=== PATIENT | male | born 1970 ===

== ENCOUNTER 2020-01-04 11:22 | Day surgery (SDC) | payer OTHER, SELFPAY ==
[2019-12-28 16:35] VITALS: BMI 34.2
--- NOTE | 2020-01-01 12:18 | P.CONAN_ITS ---
Documented by User: Any Self 01/01/20 12:20 HPI - Anesthesia Eval Consult details Narrative: 49yo M for Colonoscopy [facility] Past Medical History Medical History Back pain Degenerative disc disease Elevated cholesterol HTN (hypertension) Social History Social History Smoking Status: Never smoker Use of substances other than those prescribed or required for medical reasons: No Advance Directives: Yes Advance Directives on File: Yes Advance Directives Date on File: 01/04/20 Recently lost weight without trying: No Meds Allergies Allergy/AdvReac Type Severity Reaction Status Date / Time pravastatin Allergy Mild Fatigued Verified 01/04/20 12:41 simvastatin Allergy Mild Fatigued Verified 01/04/20 12:41 Fenofibrate Allergy Unknown Unknown Uncoded 12/28/19 16:29 Home Medications Medication Instructions Recorded Confirmed Type acetaminophen [Tylenol Ex Str 500 mg PO Q6H PRN 12/28/19 12/28/19 History Rapid Release] buprenorphine-naloxone film SUBLINGUAL 12/28/19 History lisinopril 1 tab PO DAILY 12/28/19 12/28/19 History omega-3 fatty acids [Fish Oil] 500 mg PO DAILY 12/28/19 12/28/19 History Exam Exam Date and Time: January 01, 2020 1218 Height,Weight and Vital Signs: Height 5 ft 9 in Weight 105.233 kg Assessment and Plan Assessment Anesthesia Assessment: Chart Reviewed Documented by User: Namita Edwards 01/04/20 12:44 [facility] Past Medical History Medical History Back pain Degenerative disc disease Elevated cholesterol HTN (hypertension) Social History Social History Smoking Status: Never smoker Use of substances other than those prescribed or required for medical reasons: No Advance Directives: Yes Advance Directives on File: Yes Advance Directives Date on File: 01/04/20 Recently lost weight without trying: No Meds Allergies Allergy/AdvReac Type Severity Reaction Status Date / Time pravastatin Allergy Mild Fatigued Verified 01/04/20 12:41 simvastatin Allergy Mild Fatigued Verified 01/04/20 12:41 Fenofibrate Allergy Unknown Unknown Uncoded 12/28/19 16:29 Home Medications Medication Instructions Recorded Confirmed Type acetaminophen [Tylenol Ex Str 500 mg PO Q6H PRN 12/28/19 12/28/19 History Rapid Release] buprenorphine-naloxone film SUBLINGUAL 12/28/19 History lisinopril 1 tab PO DAILY 12/28/19 12/28/19 History omega-3 fatty acids [Fish Oil] 500 mg PO DAILY 12/28/19 12/28/19 History Exam Airway Mallampati Class: II TM Dist: >3cm Neck ROM: Full (Thick neck) Heart: RRR Lungs: CTA Assessment and Plan Assessment Anesthesia Assessment: Anesthesia Plan Discussed and Consent Obtained Final Anesthetic Review NPO: Yes ASA Class: III Final Preanesthetic Review: No Changes in Pt Med Stat, Meds & Allergies Reviewed, Consent Obtained/Reviewed and Med/Surg/Anes Hx Reviewed Patient Risk: Intermediate Procedure Risk: Low Anesthetic Plan Anesthetic Plan: MAC: Disposition: Standard PACU
[2020-01-04 12:25] VITALS: BP 146/95; PULSE 74; RESP 20; TEMP 36.5; O2SAT 96
[2020-01-04 12:29] VITALS: BP 146/95; PULSE 74; RESP 20; TEMP 36.5; O2SAT 96
[2020-01-04] MEDS: Lactated Ringers 1,000 ML 100 ML IVCONT (12:39)
[2020-01-04 13:45] VITALS: BP 123/76; PULSE 86; RESP 16; TEMP 36.7; O2SAT 98
[2020-01-04 13:56] VITALS: O2SAT 98
[2020-01-04 14:00] VITALS: BP 130/85; PULSE 83; RESP 18; O2SAT 97
--- NOTE | 2020-01-04 14:19 | HO.POSTANES ---
Post Anesthesia Evaluation Post Anesthesia Evaluation Vital Signs: Vital Signs Temp Pulse Resp BP Pulse Ox 01/04/20 14:00 83 18 130/85 97 01/04/20 13:56 98 01/04/20 13:45 98.1 F 86 16 123/76 98 01/04/20 12:29 97.7 F 74 20 146/95 H 96 01/04/20 12:25 97.7 F 74 20 146/95 H 96 Anesthesia: Monitored Mental Status: Awake Pain Control: Satisfactory Nausea/Vomiting: None Hydration: Adequate Anesthesia-Related Issues: No Anes. Related Issues
--- NOTE | 2020-01-04 14:25 | OP_ITS ---
SURGEON: Bg Cedeno MD INDICATIONS: The patient presents for evaluation of colorectal cancer screening. Full consent has been obtained from him for this, including risks of bleeding and perforation. PREOPERATIVE DIAGNOSIS: Colorectal cancer screening. POSTOPERATIVE DIAGNOSIS: PROCEDURE PERFORMED: Colonoscopy to cecum and terminal ileum. ESTIMATED BLOOD LOSS: COMPLICATIONS: ANESTHESIA: Monitored anesthesia care. ASSISTANTS: SPECIMENS: POSTOPERATIVE DIAGNOSES: Colorectal cancer screening, diverticulosis and internal hemorrhoids. DESCRIPTION OF PROCEDURE: The patient was placed in the left lateral decubitus position. The digital rectal exam revealed no abnormalities. The Olympus video pediatric colonoscope was entered into the rectum and advanced easily to the cecum. Once in the cecum, I did identify normal-appearing cecal pouch with appendiceal orifice and a normal-appearing ileocecal valve. The terminal ileum was cannulated and appeared normal. The scope was withdrawn back in the colon. The entire cecum and ileocecal valve appeared normal. The scope was slowly withdrawn assessing all mucosal surfaces carefully. Preparation was excellent. I did not visualize any sign of polyps, colitis, nor angiodysplasia. There was a mild amount of sigmoid diverticulosis. In the rectum, scope was retroflexed visualizing small internal hemorrhoids, but no other pathology. The rectal mucosa appeared normal. The scope was straightened out and withdrawn from the patient. He tolerated the procedure well and was returned to the recovery area in stable condition. IMPRESSION: 1. Diverticulosis. 2. Internal hemorrhoids. PLAN: Given the patient's negative exam and negative family history of colon cancer, I would recommend a followup colonoscopy in 10 years for further screening. He will otherwise see me on a p.r.n. basis. MD URIAH Denton/DIMPLE / [phone]
== END 2020-01-04 14:21 | disposition home or self-care (01) ==
PROVIDERS: PCP Internal Medicine; Visit Provider Internal Medicine
PROC: 0DJD8ZZ Inspection of Lower Intestinal Tract, Via Natural or Artificial Opening Endoscopic (ICD-10-PCS; CPT 45378; principal; 2020-01-04 12:50)
DX: Z12.11 Encounter for screening for malignant neoplasm of colon (principal); K57.30 Diverticulosis of large intestine without perforation or abscess without bleeding; K64.8 Other hemorrhoids; I10 Essential (primary) hypertension; E78.00 Pure hypercholesterolemia, unspecified; Z79.899 Other long term (current) drug therapy; Z88.8 Allergy status to other drugs, medicaments and biological substances
CPT/HCPCS: 45378

== ENCOUNTER 2021-11-10 10:43 | Outpatient (REF) | payer OTHER, SELFPAY ==
[2021-11-10 13:52] LABS: MANUAL DIFF FLAG NO
[2021-11-10 14:08] LABS: Basophils Percent Auto 0.5 % (0-2); Eosinophils Absolute Auto 0.1 X10*3/uL (0.0-0.4); Eosinophils Percent Auto 1.5 % (0-4); Imm Gran Abs Auto 0.01 X10*3/uL (0.00-0.03); Imm Gran Pct Auto 0.2 % (0.0-0.4); Lymphocytes Absolute Auto 2.2 X10*3/uL (1.2-4.9); Lymphocytes Percent Auto 54.1 % (20-40); Mean Corpuscular HGB Conc 34.1 g/dl (31.0-36.0); Mean Corpuscular Hemoglobin 29.5 pg (27.0-33.0); Mean Corpuscular Volume 86.5 fL (80.0-98.0); Mean Platelet Volume 11.2 fL (9.4-12.4); Monocytes Absolute Auto 0.4 X10*3/uL (0.1-1.2); Monocytes Percent Auto 8.7 % (2-11); Neutrophils Absolute Auto 1.4 x10*3/uL (2.0-8.3); Platelet Count 226 X10*3/uL (160-400); Red Blood Count 4.74 X10*6/uL (4.60-5.80); Red Cell Distribution Width 12.1 % (11.0-16.0)
[2021-11-10 14:15] LABS: Estimated Average Glucose 111 mg/dL; Hemoglobin A1c % 5.5 %
[2021-11-10 14:31] LABS: Alanine Aminotransferase 40 U/L (0-40); Albumin Level 4.1 g/dL (3.5-5.0); Alkaline Phosphatase 51 U/L (39-117); Anion Gap 13 (12-20); Aspartate Amino Transferase 31 U/L (5-37); Bilirubin Total 0.5 mg/dL (0.0-1.0); Blood Urea Nitrogen 17 mg/dL (9-16); Calcium 9.2 mg/dL (8.4-10.2); Carbon Dioxide 29 mmol/L (22-29); Chloride 101 mmol/L (96-108); Cholesterol 243 mg/dL; Estimated Glomerular Filt Rate > 60; Glucose Random 104 mg/dL (60-115); HDL Cholesterol 39 mg/dL; LDL Cholesterol Calculated 151 mg/dl; Potassium 4.1 mmol/L (3.3-5.1); Sodium 139 mmol/L (135-145); Total Protein 7.2 g/dL (6.5-8.0); Triglycerides 268 mg/dL
[2021-11-10 14:47] LABS: Free T4 (Free Thyroxine) 0.89 ng/dL (0.71-1.85); Thyroid Stimulating Hormone 1.28 uIU/mL (0.32-4.0)
[2021-11-10 14:54] LABS: Folate 3.6 ng/mL (> or = 4.0); Vitamin B12 367 pg/mL (200-900)
== END 2021-11-10 10:44 | disposition home or self-care (01) ==
LOC: HO.10HDL 10:43
PROVIDERS: Visit Provider Internal Medicine
DX: I10 Essential (primary) hypertension (principal); R73.02 Impaired glucose tolerance (oral); E78.00 Pure hypercholesterolemia, unspecified; Z12.5 Encounter for screening for malignant neoplasm of prostate
CPT/HCPCS: 36415; 80053; 80061; 82607; 82746; 83036; 84153; 84439; 84443; 85025

== ENCOUNTER 2022-10-22 09:55 | Outpatient (REF) | payer OTHER, SELFPAY ==
[2022-10-22 10:26] LABS: MANUAL DIFF FLAG NO
[2022-10-22 10:30] LABS: Basophils Percent Auto 0.5 % (0-2); Eosinophils Absolute Auto 0.1 X10*3/uL (0.0-0.4); Eosinophils Percent Auto 1.6 % (0-4); Hemoglobin 13.7 g/dl (14.0-18.0); Imm Gran Abs Auto 0.01 X10*3/uL (0.00-0.03); Imm Gran Pct Auto 0.2 % (0.0-0.4); Lymphocytes Absolute Auto 2.4 X10*3/uL (1.2-4.9); Mean Corpuscular HGB Conc 34.3 g/dl (31.0-36.0); Mean Corpuscular Volume 87.7 fL (80.0-98.0); Mean Platelet Volume 10.3 fL (9.4-12.4); Monocytes Absolute Auto 0.4 X10*3/uL (0.1-1.2); Monocytes Percent Auto 8.2 % (2-11); Neutrophils Absolute Auto 1.6 x10*3/uL (2.0-8.3); Neutrophils Percent Auto 35.5 % (45-73); Platelet Count 206 X10*3/uL (160-400); Red Blood Count 4.56 X10*6/uL (4.60-5.80); White Blood Count 4.4 X10*3/uL (4.8-10.8)
[2022-10-22 10:41] LABS: Estimated Average Glucose 105 mg/dL; Hemoglobin A1c % 5.3 %
[2022-10-22 10:50] LABS: Alanine Aminotransferase 50 U/L (0-40); Alkaline Phosphatase 52 U/L (39-117); Anion Gap 10 (12-20); Aspartate Amino Transferase 31 U/L (5-37); Bilirubin Total 0.5 mg/dL (0.0-1.0); Blood Urea Nitrogen 17 mg/dL (9-16); Calcium 9.5 mg/dL (8.4-10.2); Carbon Dioxide 32 mmol/L (22-29); Chloride 103 mmol/L (96-108); Cholesterol 238 mg/dL; Estimated Glomerular Filt Rate > 60; Glucose Random 119 mg/dL (60-115); HDL Cholesterol 35 mg/dL; LDL Cholesterol Calculated 153 mg/dl; Potassium 4.3 mmol/L (3.3-5.1); Sodium 141 mmol/L (135-145); Total Protein 7.1 g/dL (6.5-8.0); Triglycerides 254 mg/dL
[2022-10-22 11:05] LABS: Free T4 (Free Thyroxine) 0.91 ng/dL (0.71-1.85); Thyroid Stimulating Hormone 1.34 uIU/mL (0.32-4.0)
[2022-10-22 11:29] LABS: Folate 9.8 ng/mL (> or = 4.0); Prostate Specific Antigen Scr 0.38 ng/mL (<0.05-4.0); Vitamin B12 576 pg/mL (200-900)
== END 2022-10-22 09:56 | disposition home or self-care (01) ==
LOC: HO.10HDL 09:55
PROVIDERS: Visit Provider Internal Medicine
DX: Z12.5 Encounter for screening for malignant neoplasm of prostate (principal); R73.02 Impaired glucose tolerance (oral); E78.00 Pure hypercholesterolemia, unspecified
CPT/HCPCS: 36415; 80053; 80061; 82607; 82746; 83036; 84153; 84439; 84443; 85025

== ENCOUNTER 2023-02-26 15:36 | Outpatient (AMB) | payer OTHER, SELFPAY ==
[2023-02-26 15:37] VITALS: BP 158/82; PULSE 72; O2SAT 98; BMI 37.0
--- NOTE | 2023-02-26 15:37 | MHC.PC.OV ---
Vital Signs 02/26/23 15:37 Height 5 ft 9 in Weight 250 lb 4 oz BMI 37.0 BP 158/82 H Blood Pressure Location Lt brachial Position Sitting Pulse 72 Pulse Source Pulse Oximeter Pulse Oximetry (%) 98 Oxygen Delivery Method Room Air Intake Visit Reasons: 6 month f/u Emergency Medical Service Manager Required: No Accompanied by: Self / Same As Patient Allergies pravastatin Allergy (Mild, Verified 02/26/23 15:37) Fatigued simvastatin Allergy (Mild, Verified 02/26/23 15:37) Fatigued fenofibrate Allergy (Unknown, Verified 02/26/23 15:37) Unknown Medication List - Last Reconciled 02/26/23 by Elmer Chacko MD acetaminophen 500 mg PO Q6H PRN buprenorphine-naloxone 2-0.5 mg film sublingual DAILY folic acid 1 mg PO DAILY 30 days lisinopril 10 mg PO DAILY 30 days omega-3 fatty acids 500 mg PO DAILY Tobacco use date assessed: 08/20/22 Dental Screening Dental Screen Date: 02/26/23 Did you have a dental visit in the last 12 months?: Yes Did you have a dental problem in the last 6 months where you did not have access to dental care?: No Was dental information given to patient?: Patient has dentist HPI 6 month f/u HPI Details 52-year-old obese male with hypertension hypercholesterolemia generalized anxiety disorder BPH impaired glucose tolerance coming in for follow-up. Last seen in July for physical exam. Patient is up-to-date with colonoscopy December 2019. Discussed about the blood work that was done in September. 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 Patient was to get the blood work repeated again in 6 months. [facility] Medical History Degenerative disc disease Essential hypertension Generalized anxiety disorder Hypercholesterolemia Insomnia Leukopenia Obesity (BMI 30-39.9) Vitamin D deficiency Surgical History No pertinent past surgical history Family History Father Skin cancer Mother No problems noted. Social History Housing: House Alcohol intake: current Patient Tobacco Use Status: Former Tobacco user Tobacco use type: Cigarette Years Smoked: smoked 28 years old had 10 year of smoking e-Cigarette/Vaping Use: Never Used Second Hand Smoke Exposure: Yes Advance Directives Date on File: 01/04/20 Current occupational status: employed Cognitive needs: No Hearing needs: No Vision needs: No Questionnaire Thrive Questionnaire Date Thrive assessed: 08/20/22 KATHIA-7 AMB Questionnaire KATHIA-7 Date KATHIA - 7 assessed: 08/20/22 Source: Developed by Drs. Bg Cunha, Barb Guardado, Dante Larsen and colleagues, with an educational sabas from [employer]. Physical exam (Primary Care) Vital Signs: Last Vital Signs Pulse 72 02/26/23 15:37 BP 158/82 H 02/26/23 15:37 Pulse Ox 98 02/26/23 15:37 Oxygen Delivery Method Room Air 02/26/23 15:37 BMI result Body Mass Index 37.0 Tobacco/Smoking Status: Tobacco use Status Tobacco use date assessed 08/20/22 02/26/23 15:38 Patient Tobacco Use Status Former Tobacco user 02/26/23 15:38 Tobacco use type Cigarette 02/26/23 15:38 e-Cigarette/Vaping Use Never Used 02/26/23 15:38 Thrive Assessment: Date of Thrive Assessment Date Thrive assessed 08/20/22 02/26/23 15:38 Const General: alert; No acute distress Eyes Conjunctivae: conjunctivae normal Resp Auscultation: clear to auscultation bilaterally Cardio Rate: regular rate Rhythm: regular rhythm GI Inspection: Yes normal to inspection Extrem General: Yes normal to inspection and No edema Assessment and Plan Assessment & Plan (1) Obesity (BMI 30-39.9): Code(s): E66.9 - Obesity, unspecified Plan: Diet and exercise (2) Hypercholesterolemia: Code(s): E78.00 - Pure hypercholesterolemia, unspecified Plan: Avoid fried foods, chicken skin, eggs, butter margarine, pastries and meat. Be it pork or beef they have a lot of cholesterol LDL goal of less than 130 and triglyceride of less than 150 (3) Essential hypertension: Code(s): I10 - Essential (primary) hypertension Plan: Continue with blood pressure medication. Decrease salt intake and exercise patient on lisinopril 10 mg once a day (4) Impaired glucose tolerance: Code(s): R73.02 - Impaired glucose tolerance (oral) Plan: Decrease the amount of carbohydrate intake, pasta, bread, rice and potatoes are all sugar and that is aside from all the sweet stuff, remember that fruits are good but they are Sweet also. (5) Generalized anxiety disorder: Code(s): F41.1 - Generalized anxiety disorder Plan: Avoid the foods that causes that usually spicy foods, tomato products, juices, coffee, soda and foods that your sensitive to. After eating do not lie down, allow 3-4 hours before in lie down. And keep the head of bed above 30 degrees to avoid the acid from going up. (6) BPH (benign prostatic hyperplasia): Comment: Microwave Dr. Aguilar Code(s): N40.0 - Benign prostatic hyperplasia without lower urinary tract symptoms Plan: Continue to monitor (7) Anemia: Code(s): D64.9 - Anemia, unspecified Orders: Orders Complete Blood Count Auto Diff 6 Months D64.9 - Anemia, unspecified Hemoglobin A1c 6 Months R73.02 - Impaired glucose tolerance (oral) Comprehensive Met. Panel 6 Months R73.02 - Impaired glucose tolerance (oral) Prostate Specific Antigen Scr 6 Months E78.00 - Pure hypercholesterolemia, unspecified IRON PROFILE 6 Months D64.9 - Anemia, unspecified Reticulocyte Count 6 Months D64.9 - Anemia, unspecified Vitamin B12 and Folate 6 Months D64.9 - Anemia, unspecified Ferritin 6 Months D64.9 - Anemia, unspecified Lipid Panel 6 Months E78.00 - Pure hypercholesterolemia, unspecified Coding Level of Care Code Est Pt Level 4 (51321) Diagnoses Obesity (BMI 30-39.9) E66.9 Hypercholesterolemia E78.00 Essential hypertension I10 Impaired glucose tolerance R73.02 Generalized anxiety disorder F41.1 BPH (benign prostatic hyperplasia) N40.0 Anemia D64.9
== END 2023-02-26 16:24 | disposition home or self-care (01) ==
PROVIDERS: Visit Provider Internal Medicine
DX: I10 Essential (primary) hypertension (principal); E78.00 Pure hypercholesterolemia, unspecified; E66.9 Obesity, unspecified; Z68.37 Body mass index [BMI] 37.0-37.9, adult; R73.02 Impaired glucose tolerance (oral); F41.1 Generalized anxiety disorder; N40.0 Benign prostatic hyperplasia without lower urinary tract symptoms; D64.9 Anemia, unspecified
CPT/HCPCS: 99214

== ENCOUNTER 2023-08-15 07:46 | Outpatient (REF) | payer OTHER, SELFPAY ==
[2023-08-15 10:52] LABS: MANUAL DIFF FLAG NO
[2023-08-15 11:15] LABS: Basophils Percent Auto 0.9 % (0-2); Eosinophils Absolute Auto 0.1 X10*3/uL (0.0-0.4); Eosinophils Percent Auto 1.8 % (0-4); Hematocrit 39.7 % (42.0-52.0); Hemoglobin 13.5 g/dl (14.0-18.0); Immature Retic Fraction 12.9 % (2.3-13.4); Lymphocytes Percent Auto 57.5 % (20-40); Mean Corpuscular Hemoglobin 30.2 pg (27.0-33.0); Mean Corpuscular Volume 88.8 fL (80.0-98.0); Mean Platelet Volume 11.4 fL (9.4-12.4); Monocytes Absolute Auto 0.3 X10*3/uL (0.1-1.2); Neutrophils Percent Auto 29.8 % (45-73); Platelet Count 152 X10*3/uL (160-400); Red Blood Count 4.47 X10*6/uL (4.60-5.80); Retic HGB Equivalent 34.7 pg (30.0-35.0); Reticulocyte Percent 1.8 % (0.5-1.8); Reticulocytes Absolute 0.081 X10*6/uL (0.026-0.095); White Blood Count 3.4 X10*3/uL (4.8-10.8)
[2023-08-15 11:39] LABS: Prostate Specific Antigen Scr 0.81 ng/mL (<0.05-4.0); Vitamin B12 488 pg/mL (200-900)
[2023-08-15 11:40] LABS: Alanine Aminotransferase 29 U/L (0-40); Alkaline Phosphatase 63 U/L (39-117); Anion Gap 12 (12-20); Aspartate Amino Transferase 33 U/L (5-37); Bilirubin Total 0.4 mg/dL (0.0-1.0); Blood Urea Nitrogen 14 mg/dL (9-16); Calcium 9.3 mg/dL (8.4-10.2); Carbon Dioxide 31 mmol/L (22-29); Chloride 102 mmol/L (96-108); Cholesterol 234 mg/dL (<200); Estimated Glomerular Filt Rate > 60; Glucose Random 112 mg/dL (60-115); HDL Cholesterol 31 mg/dL (>40); Iron 82 mcg/dL (45-160); Percent Iron Saturation 33 % (15-50); Potassium 4.1 mmol/L (3.3-5.1); Sodium 141 mmol/L (135-145); Total Iron Binding Capacity 247 mcg/dL (228-428); Triglycerides 486 mg/dL (<150); Unsaturated Iron Binding 165 ug/dL
[2023-08-15 11:41] LABS: Ferritin 140 ng/mL (20-250)
[2023-08-15 11:47] LABS: Estimated Average Glucose 114 mg/dL; Hemoglobin A1c % 5.6 % (<6.0)
[2023-08-15 12:31] LABS: Folate > 20.0 ng/mL (> or = 4.0)
== END 2023-08-15 07:47 | disposition home or self-care (01) ==
LOC: HO.10HDL 07:46
PROVIDERS: Visit Provider Internal Medicine
DX: D64.9 Anemia, unspecified (principal); Z12.5 Encounter for screening for malignant neoplasm of prostate; R73.02 Impaired glucose tolerance (oral); E78.00 Pure hypercholesterolemia, unspecified
CPT/HCPCS: 36415; 80053; 80061; 82607; 82728; 82746; 83036; 83540; 84153; 85025; 85045

== ENCOUNTER 2023-08-22 15:26 | Outpatient (AMB) | payer OTHER, SELFPAY ==
--- NOTE | 2023-08-22 15:28 | MHC.PC.OV ---
Vital Signs 08/22/23 15:29 Height 5 ft 9 in Weight 247 lb 0.6 oz BMI 36.5 BP 138/74 Blood Pressure Location Lt brachial Position Sitting Pulse 69 Pulse Source Pulse Oximeter Pulse Oximetry (%) 96 Oxygen Delivery Method Room Air Intake Visit Reasons: pe Intake Note: Patient is here today for a physical. Sales Enablement Consultant Required: No Allergies simvastatin Allergy (Mild, Verified 08/22/23 15:38) Fatigued fenofibrate Allergy (Unknown, Verified 08/22/23 15:38) Unknown Medication List - Last Reconciled 08/22/23 by Elmer Chacko MD acetaminophen 500 mg PO Q6H PRN buprenorphine-naloxone 2-0.5 mg [place] folic acid 1 mg PO DAILY 30 days lisinopril 10 mg PO DAILY Tobacco use date assessed: 08/22/23 Dental Screening Dental Screen Date: 08/22/23 Did you have a dental visit in the last 12 months?: Yes Did you have a dental problem in the last 6 months where you did not have access to dental care?: No Was dental information given to patient?: Patient has dentist HPI pe HPI Details 52-year-old obese male with hypertension hypercholesterolemia impaired glucose tolerance BPH and generalized anxiety disorder coming in for physical exam. Last colonoscopy is December 2019. [facility] Medical History Degenerative disc disease Essential hypertension Generalized anxiety disorder Hypercholesterolemia Insomnia Leukopenia Obesity (BMI 30-39.9) Vitamin D deficiency Surgical History No pertinent past surgical history Family History Father Skin cancer Mother No problems noted. Social History (Updated 08/22/23 @ 16:23 by Elmer Chacko MD) Housing: House Alcohol intake: current Comment: stopped 3 years ago Patient Tobacco Use Status: Former Tobacco user Tobacco use type: Cigarette Years Smoked: smoked 28 years old had 10 year of smoking e-Cigarette/Vaping Use: Never Used Second Hand Smoke Exposure: Yes Advance Directives Date on File: 01/04/20 Current occupational status: employed Cognitive needs: No Hearing needs: No Vision needs: No Questionnaire PHQ-9 Over the last 2 weeks, how often have you been bothered by any of the following problems? 1. Little interest or pleasure in doing things: not at all 2. Feeling down, depressed, or hopeless: not at all 3. Trouble falling or staying asleep, or sleeping too much: not at all 4. Feeling tired or having little energy: not at all 5. Poor appetite or overeating: not at all 6. Feeling bad about yourself - or that you are a failure or have let yourself or your family down: not at all 7. Trouble concentrating on things, such as reading the newspaper or watching television: not at all 8. Moving or speaking so slowly that other people could have noticed. Or the opposite - being so fidgety or restless that you have been moving around a lot more than usual: not at all 9. Thoughts that you would be better off or of hurting yourself in some way: not at all Total score: 0 Depression Screening Interpretation: Negative Depression Screening Done: Yes Source: Developed by Drs. Bg Cunha, Barb Guardado, Dante Larsen and colleagues, with an educational sabas from [employer]. Thrive Questionnaire Date Thrive assessed: 08/22/23 I am a: Patient What is your living situation today?: I have a steady place to live Within the past 12 months, did the food you bought not last and you didn't have the money to get more?: Never true Within the past 12 months, did you worry whether your food would run out before you got money to buy more?: Never true Do you have trouble paying for medicines?: No Do you have trouble getting transportation to medical appointments?: No Do you have trouble paying your heating and electricity bill?: No Do you have trouble taking care of your child, family member or friend?: No Do you have trouble with day-to-day activities such as bathing, preparing meals, shopping, managing finances, etc.?: No Are you currently unemployed and looking for a job?: No Are you interested in more education?: No Please select the resources that you would like help with: None Currently or been in a relationship where the following occur: no concerns reported THRIVE Score: 0 AUDIT C Alcohol Use Questionnaire (AUDIT-C) 1. How often do you have a drink containing alcohol?: 2-4 times a month 2. How many drinks containing alcohol do you have on a typical day when you are drinking?: 3 or 4 3. How often do you have six or more drinks on one occasion?: Never Total Score: 3 KATHIA-7 AMB Questionnaire KATHIA-7 Date KATHIA - 7 assessed: 08/22/23 Feeling nervous, anxious, or on edge: 0 = Not at all Not being able to stop or control worryin = Not at all Worrying too much about different things: 0 = Not at all Trouble relaxin = Not at all Being so restless that it is hard to sit still: 0 = Not at all Becoming easily annoyed or irritable: 0 = Not at all Feeling afraid as if something awful might happen: 0 = Not at all Total KATHIA-7 score (0-4 normal; 5-9 mild; 10-14 moderate; 15-21 severe): 0 Source: Developed by Drs. Bg Cunha, Barb Guardado, Dante Larsen and colleagues, with an educational sabas from [employer]. KATHIA-7 Assessment Billing KATHIA-7 Assessment Tool: KATHIA-7 Assessment 36215 Review of Systems Const Denies poor appetite and Denies weakness Eyes Denies no additional complaints ENT Reports Normal hearing present, Denies dizziness, Denies nasal congestion, Denies tinnitus and Denies sore throat Card Denies chest pain, Denies syncope, Denies rapid heart rate and Denies dyspnea Resp Denies cough and Denies dyspnea GI Denies change in stool character, Reports constipation, Denies diarrhea, Denies nausea and Denies vomiting Denies dysuria and Denies urinary frequency Neuro Reports Normal hearing present, Denies confusion, Denies dizziness, Denies syncope and Denies weakness Psych Denies confusion Physical exam (Primary Care) Vital Signs: Last Vital Signs Pulse 69 08/22/23 15:29 BP 138/74 08/22/23 15:29 Pulse Ox 96 08/22/23 15:29 Oxygen Delivery Method Room Air 08/22/23 15:29 BMI result Body Mass Index 36.5 Tobacco/Smoking Status: Tobacco use Status Tobacco use date assessed 08/22/23 08/22/23 15:30 Patient Tobacco Use Status Former Tobacco user 08/22/23 15:30 Tobacco use type Cigarette 08/22/23 15:30 e-Cigarette/Vaping Use Never Used 08/22/23 15:30 PHQ-9: PHQ-9 Score PHQ-9: Total score 0 08/22/23 15:30 Depression Screening Interpretation: Negative Thrive Assessment: Date of Thrive Assessment Date Thrive assessed 08/22/23 08/22/23 15:30 Currently or been in a relationship where the following occur: no concerns reported Const General: No confusion Orientation/consciousness: No confusion HENMT Head: Yes normocephalic Ears: external ears normal and TM's normal bilaterally Face and sinus: Yes normal facial exam Mouth: moist mucous membranes Throat: Yes tonsils normal Eyes Conjunctivae: conjunctivae normal Pupils: Equal, round and reactive pupils present and Pupil accommodation reflex normal Direct Ophthalmoscopy: normal light reflex Neck Neck: No lymphadenopathy Thyroid: Thyroid normal Chest Chest palpation & inspection: normal inspection of the chest Resp Effort & Inspection: normal respiratory effort and no audible wheezes Auscultation: clear to auscultation bilaterally, no crackles, no wheezes and lung sounds not diminished Cardio Rate: regular rate Rhythm: regular rhythm Peripheral pulses: radial pulses present and dorsalis pedis present GI Other: Declined rectal Palpation (GI): no masses Auscultation: normal bowel sounds and normoactive bowel sounds Rectal Exam - Male: Yes deferred Other: Declined Skin General skin exam: no rashes or lesions noted Rashes: no rashes Neuro General: No confusion Cranial nerves: Yes Equal, round and reactive pupils present and Yes Normal hearing present Cognition (Neuro): normal cognition Gait exam (Neuro): Normal gait present Motor exam (neuro): 5/5 motor strength present throughout Deep tendon reflexes (DTR's): Right brachioradialis reflex intensity grade: 2+, Left brachioradialis reflex intensity grade: 2+, Right patellar reflex intensity grade: 2+ and Left patellar reflex intensity grade: 2+ Extrem General: No edema Assessment and Plan Assessment & Plan (1) Annual physical exam: Code(s): Z00.00 - Encounter for general adult medical examination without abnormal findings (2) Obesity (BMI 30-39.9): Code(s): E66.9 - Obesity, unspecified Plan: Diet and exercise (3) Hypercholesterolemia: Code(s): E78.00 - Pure hypercholesterolemia, unspecified Plan: Avoid fried foods, chicken skin, eggs, butter margarine, pastries and meat. Be it pork or beef they have a lot of cholesterol LDL goal of less than 130 and triglyceride of less than 150 (4) Essential hypertension: Code(s): I10 - Essential (primary) hypertension Plan: Continue with blood pressure medication. Decrease salt intake and exercise takes lisinopril 10 mg once a (5) Generalized anxiety disorder: Code(s): F41.1 - Generalized anxiety disorder Plan: Stable (6) Impaired glucose tolerance: Code(s): R73.02 - Impaired glucose tolerance (oral) Plan: Decrease the amount of carbohydrate intake, pasta, bread, rice and potatoes are all sugar and that is aside from all the sweet stuff, remember that fruits are good but they are Sweet also. (7) BPH (benign prostatic hyperplasia): Comment: Herbert Aguilar Code(s): N40.0 - Benign prostatic hyperplasia without lower urinary tract symptoms Plan: Stable (8) Anemia: Code(s): D64.9 - Anemia, unspecified Plan: Will continue to monitor Orders: Orders Comprehensive Met. Panel Today E78.00 - Pure hypercholesterolemia, unspecified Reticulocyte Count 3 Months D64.9 - Anemia, unspecified Hemoglobin A1c 3 Months D64.9 - Anemia, unspecified Lipid Panel Today E78.00 - Pure hypercholesterolemia, unspecified Complete Blood Count Auto Diff 3 Months D64.9 - Anemia, unspecified Ferritin 3 Months D64.9 - Anemia, unspecified Lipid Panel 3 Months D64.9 - Anemia, unspecified, E78.00 - Pure hypercholesterolemia, unspecified Vitamin B12 and Folate 3 Months D64.9 - Anemia, unspecified Medications: New sertraline 25 mg PO DAILY 30 tabs 3RF F41.1 - Generalized anxiety disorder fenofibrate 150 mg PO DAILY 30 caps 3RF E78.00 - Pure hypercholesterolemia, unspecified Coding Level of Care Code Est Pt Prev Care 40-64y(34084) Diagnoses Annual physical exam Z00.00 Obesity (BMI 30-39.9) E66.9 Hypercholesterolemia E78.00 Essential hypertension I10 Generalized anxiety disorder F41.1 Impaired glucose tolerance R73.02 BPH (benign prostatic hyperplasia) N40.0 Anemia D64.9 Additional Codes KATHIA-7 Assessment Billing - KATHIA-7 Assessment Tool: KATHIA-7 Assessment [id number] ([id number])
[2023-08-22 15:29] VITALS: BP 138/74; PULSE 69; O2SAT 96; BMI 36.5
== END 2023-08-22 16:39 | disposition home or self-care (01) ==
PROVIDERS: PCP Internal Medicine; Visit Provider Internal Medicine
DX: Z00.00 Encounter for general adult medical examination without abnormal findings (principal); E78.00 Pure hypercholesterolemia, unspecified; I10 Essential (primary) hypertension; F41.1 Generalized anxiety disorder; R73.02 Impaired glucose tolerance (oral); N40.0 Benign prostatic hyperplasia without lower urinary tract symptoms; D64.9 Anemia, unspecified
CPT/HCPCS: 99396

== ENCOUNTER 2024-01-07 07:31 | Outpatient (REF) | payer BC, SELFPAY ==
[2024-01-07 10:50] LABS: MANUAL DIFF FLAG NO
[2024-01-07 11:00] LABS: Basophils Percent Auto 0.5 % (0-2); Eosinophils Absolute Auto 0.1 X10*3/uL (0.0-0.4); Eosinophils Percent Auto 1.3 % (0-4); Hematocrit 38.9 % (42.0-52.0); Hemoglobin 13.3 g/dl (14.0-18.0); Immature Retic Fraction 14.9 % (2.3-13.4); Lymphocytes Percent Auto 52.8 % (20-40); Mean Corpuscular HGB Conc 34.2 g/dl (31.0-36.0); Mean Corpuscular Hemoglobin 30.4 pg (27.0-33.0); Mean Platelet Volume 11.5 fL (9.4-12.4); Monocytes Absolute Auto 0.4 X10*3/uL (0.1-1.2); Monocytes Percent Auto 10.1 % (2-11); Neutrophils Absolute Auto 1.3 x10*3/uL (2.0-8.3); Neutrophils Percent Auto 35.3 % (45-73); Platelet Count 231 X10*3/uL (160-400); Red Blood Count 4.37 X10*6/uL (4.60-5.80); Red Cell Distribution Width 12.1 % (11.0-16.0); Retic HGB Equivalent 33.6 pg (30.0-35.0); Reticulocyte Percent 1.9 % (0.5-1.8); Reticulocytes Absolute 0.084 X10*6/uL (0.026-0.095); White Blood Count 3.8 X10*3/uL (4.8-10.8)
[2024-01-07 11:16] LABS: Alanine Aminotransferase 37 U/L (0-40); Albumin Level 4.1 g/dL (3.5-5.0); Alkaline Phosphatase 43 U/L (39-117); Anion Gap 9 (12-20); Aspartate Amino Transferase 28 U/L (5-37); Bilirubin Total 0.5 mg/dL (0.0-1.0); Blood Urea Nitrogen 15 mg/dL (9-16); Calcium 9.5 mg/dL (8.4-10.2); Carbon Dioxide 32 mmol/L (22-29); Chloride 103 mmol/L (96-108); Cholesterol 227 mg/dL (<200); Estimated Glomerular Filt Rate > 60; Glucose Random 105 mg/dL (60-115); HDL Cholesterol 38 mg/dL (>40); LDL Cholesterol Calculated 146 mg/dL (<100); Potassium 3.9 mmol/L (3.3-5.1); Sodium 140 mmol/L (135-145); Total Protein 7.2 g/dL (6.5-8.0); Triglycerides 219 mg/dL (<150)
[2024-01-07 11:24] LABS: Estimated Average Glucose 111 mg/dL; Hemoglobin A1C 134.0545 umol/L; Hemoglobin A1c % 5.5 % (<6.0); Total Hemoglobin (HGBA1C) 3609.9373 umol/L
[2024-01-07 11:35] LABS: Ferritin 323 ng/mL (20-250)
[2024-01-07 11:44] LABS: Folate 16.5 ng/mL (> or = 4.0); Vitamin B12 387 pg/mL (200-900)
== END 2024-01-07 07:32 | disposition home or self-care (01) ==
LOC: HO.10HDL 07:31
PROVIDERS: Visit Provider Internal Medicine
DX: Z13.1 Encounter for screening for diabetes mellitus (principal); D64.9 Anemia, unspecified; E78.00 Pure hypercholesterolemia, unspecified
CPT/HCPCS: 36415; 80053; 80061; 82607; 82728; 82746; 83036; 85025; 85045

== ENCOUNTER 2024-01-13 16:48 | Outpatient (AMB) | payer BC, SELFPAY ==
--- NOTE | 2024-01-13 16:51 | MHC.PC.OV ---
Vital Signs 01/13/24 16:52 Height 5 ft 9 in Weight 238 lb 8 oz BMI 35.2 BP 120/70 Blood Pressure Location Lt brachial Position Sitting Pulse 73 Pulse Source Pulse Oximeter Pulse Oximetry (%) 97 Oxygen Delivery Method Room Air Intake Visit Reasons: 3mof\u Intake Note: Patient is here to follow up on Anemia, BPH, HTN, Hypercholesterolemia and lab results Assessment Nurse Required: No Department Operations Manager: Not Required per policy Accompanied by: Self / Same As Patient Allergies simvastatin Allergy (Mild, Verified 01/13/24 16:52) Fatigued fenofibrate Allergy (Unknown, Verified 01/13/24 16:52) Unknown Tobacco use date assessed: 01/13/24 Dental Screening Dental Screen Date: 08/22/23 HPI 3mof\u HPI Details 53-year-old obese male(noted 9 lb weight loss) with hypercholesterolemia hypertension generalized anxiety disorder impaired glucose tolerance BPH coming in for follow-up. Last seen in 08/19/2023. Colonoscopy is up-to-date 2019. Patient states that the sertraline after being given for anxiety has not been helping him that much. Just makes him a little tired but no help. Patient is feeling like some concentration problem. [facility] Medical History Degenerative disc disease Essential hypertension Generalized anxiety disorder Hypercholesterolemia Insomnia Leukopenia Obesity (BMI 30-39.9) Vitamin D deficiency Surgical History No pertinent past surgical history Family History Father Skin cancer Mother No problems noted. Social History Housing: House Alcohol intake: current Comment: stopped 3 years ago Patient Tobacco Use Status: Former Tobacco user Tobacco use type: Cigarette Years Smoked: smoked 28 years old had 10 year of smoking e-Cigarette/Vaping Use: Never Used Second Hand Smoke Exposure: Yes Advance Directives Date on File: 01/04/20 service: No Current occupational status: employed Cognitive needs: No Hearing needs: No Vision needs: No Questionnaire Thrive Questionnaire Date Thrive assessed: 08/22/23 Are you currently unemployed and looking for a job?: I choose not to answer this question KATHIA-7 AMB Questionnaire KATHIA-7 Date KATHIA - 7 assessed: 08/22/23 Source: Developed by Drs. Bg Cunha, Barb Guardado, Dante Larsen and colleagues, with an educational sabas from [employer]. Physical exam (Primary Care) Vital Signs: Last Vital Signs Pulse 73 01/13/24 16:52 BP 120/70 01/13/24 16:52 Pulse Ox 97 01/13/24 16:52 Oxygen Delivery Method Room Air 01/13/24 16:52 BMI result Body Mass Index 35.2 Tobacco/Smoking Status: Tobacco use Status Tobacco use date assessed 01/13/24 01/13/24 16:54 Patient Tobacco Use Status Former Tobacco user 01/13/24 16:54 Tobacco use type Cigarette 01/13/24 16:54 e-Cigarette/Vaping Use Never Used 01/13/24 16:54 Thrive Assessment: Date of Thrive Assessment Date Thrive assessed 08/22/23 01/13/24 16:54 Const General: alert; No acute distress Eyes Conjunctivae: conjunctivae normal Resp Auscultation: clear to auscultation bilaterally Cardio Rate: regular rate Rhythm: regular rhythm GI Inspection: Yes normal to inspection Extrem General: Yes normal to inspection and No edema Office Procedures Flu Questionnaire Does the patient have a severe egg allergy?: No Does the patient have severe life threatening allergies?: No Does the patient have a fever or illness today?: No Has the patient ever had Guillain-Alma Syndrome?: No Has the patient ever had any past reaction to a flu shot?: No Immunizations Fluarix Triv [id number] (PF) 45 mcg (15 mcg x 3)/0.5 mL IM syringe Performing Provider: Elmer Chacko MD [facility] Administered by: ERNST Aguirre on 01/13/24 17:05 Dose Route Admin Location Dispensed Lot Number Expiration Date [facility] Instrumentation Technician 0.5 mL IM Right Deltoid 0.5 mL [id number] 09/28/24 [id number] [employer] VIS Given Date VIS Provided VIS Publication Date 01/13/24 Single Vaccine 20 Eligibility Eligibility Date Funding Source Not [facility] Eligible 01/13/24 Private Coding Level of Care Code Est Pt Level 4 (28978) Diagnoses Obesity (BMI 30-39.9) E66.9 Hypercholesterolemia E78.00 Essential hypertension I10 Impaired glucose tolerance R73.02 BPH (benign prostatic hyperplasia) N40.0 Generalized anxiety disorder F41.1 Assessment & Plan Assessment & Plan (1) Obesity (BMI 30-39.9): Code(s): E66.9 - Obesity, unspecified Category: Medical Plan: Diet and exercise (2) Hypercholesterolemia: Code(s): E78.00 - Pure hypercholesterolemia, unspecified Category: Medical Plan: Avoid fried foods, chicken skin, eggs, butter margarine, pastries and meat. Be it pork or beef they have a lot of cholesterol on fenofibrate 160 mg once a day LDL goal of less than 130 and triglyceride of less than 150. (3) Essential hypertension: Code(s): I10 - Essential (primary) hypertension Category: Medical Plan: Continue with blood pressure medication. Decrease salt intake and exercise patient is on lisinopril 10 mg once a day (4) Impaired glucose tolerance: Code(s): R73.02 - Impaired glucose tolerance (oral) Category: Medical Plan: Decrease the amount of carbohydrate intake, pasta, bread, rice and potatoes are all sugar and that is aside from all the sweet stuff, remember that fruits are good but they are Sweet also. (5) BPH (benign prostatic hyperplasia): Comment: Herbert Aguilar Code(s): N40.0 - Benign prostatic hyperplasia without lower urinary tract symptoms Category: Medical Plan: Stable (6) Generalized anxiety disorder: Code(s): F41.1 - Generalized anxiety disorder Category: Medical Plan: Patient feels that the medication is not helping and has some problem with getting organized. Discussed about stopping the sertraline and doing a referral for psychiatry evaluation. Orders: Orders Influenza [id number] Immunization Today Z23 - Encounter for immunization Referrals Psychiatry Outpatient Consultation Service F41.1 - Generalized anxiety disorder Medications: Discontinued sertraline Discontinued Reason: Doctor's Order 25 mg PO DAILY 90 tabs 1RF F41.1 - Generalized anxiety disorder
[2024-01-13 16:52] VITALS: BP 120/70; PULSE 73; O2SAT 97; BMI 35.2
== END 2024-01-13 17:18 | disposition home or self-care (01) ==
PROVIDERS: PCP Internal Medicine; Visit Provider Internal Medicine
DX: E78.00 Pure hypercholesterolemia, unspecified (principal); E66.9 Obesity, unspecified; Z68.35 Body mass index [BMI] 35.0-35.9, adult; I10 Essential (primary) hypertension; R73.02 Impaired glucose tolerance (oral); N40.0 Benign prostatic hyperplasia without lower urinary tract symptoms; F41.1 Generalized anxiety disorder

== ENCOUNTER → 2024-01-13 16:48 | Outpatient (BNVA) | payer BC, SELFPAY | PROVIDERS: PCP Internal Medicine; Visit Provider Internal Medicine | DX: E66.9 Obesity, unspecified (principal); Z68.35 Body mass index [BMI] 35.0-35.9, adult; E78.00 Pure hypercholesterolemia, unspecified; I10 Essential (primary) hypertension; R73.02 Impaired glucose tolerance (oral); N40.0 Benign prostatic hyperplasia without lower urinary tract symptoms; F41.1 Generalized anxiety disorder; Z23 Encounter for immunization | CPT/HCPCS: 90471; 90656 ==

== ENCOUNTER 2024-01-17 15:00 | Outpatient (AMB) | payer BC, SELFPAY ==
--- NOTE | 2024-01-17 14:58 | MHC.OFFVISPS ---
Intake Intake Visit Reasons: consultation Tuck Pointer Required: No Allergies simvastatin Allergy (Mild, Verified 01/13/24 16:52) Fatigued fenofibrate Allergy (Unknown, Verified 01/13/24 16:52) Unknown Medication List - Last Reconciled 01/17/24 by Elda Valdes APRN acetaminophen 500 mg PO Q6H PRN buprenorphine-naloxone 2-0.5 mg [place] fenofibrate 160 mg PO DAILY folic acid 1 mg PO DAILY 30 days lisinopril 10 mg PO DAILY HPI- Psychiatric Chief Complaint: consultation HPI Narrative: Patient referred by primary care for evaluation of anxiety. PHQ-9 equals 8 and his Genralized Anxiety Disorder-7 equals Thirteen. Patient reports that he has trouble staying focus he is easily distracted he can not sit still and he is talking to himself at home which causes conflict with his he reports that he probably had ADHD even as a child as he looks back at his report cards they all said things like student can not sit still easily distracted always talking in class was never treated for ADHD as a child. He reports the anxiety has probably been going on for 20+ years although it is worse over the last 10 years. He reports he would drink alcohol and that that would loosen up and he be able to socialize however he stopped drinking 5 years ago. He now avoids going out to do things he isolates his would like him to go out with her and do different activities but he is likely to avoid it and has no motivation to go out and socialize he also reports episodes of sweating 2 to 3 times a day he reports that his heart rate goes up slightly and he has thoughts like why is this happening but he denies severe fear or med he reports sleep is okay . He reports that he has taken Prozac in the past and Zoloft but both of them made him tired and he stopped it because of side effects. Past Psychiatric History: No inpatient level of care no PHP in the past. Zoloft and Prozac from his primary care he has never seen a learning and development specialist or psychiatrist in the past Subjective Subjective Subjective Medication Compliance: Yes Side effects from medications: No Review of Systems Medical Review of Systems: unchanged Mental Status Exam Mental Status Exam Patient Appearance: Well Grooomed and Appropriate Patient Orientation: Person, Place, Time and Situation Level of Consciousness: Appropriate and Alert Patient Behavior: Anxious and Avoidant Behavior Comments: Appeared to be minimizing symptoms Mood Description: Constricted and Nervous Affect Description: Constricted and Nervous Patient Cognition Impaired: No Ability to Follow Directions: Good Speech Pattern: Clear, Difficulty Finding Words and Long Pauses Memory Description: Intact Hallucinations: None Delusions: Not Present Thought Process: Intact and Goal Oriented Thought Content: positive for Intact and positive for Poverty of Content Judgement: Fair Assessment and Plan Assessment & Plan (1) Generalized anxiety disorder: Status: Acute Code(s): F41.1 - Generalized anxiety disorder (2) ADHD (attention deficit hyperactivity disorder), combined type: Status: Acute Code(s): F90.2 - Attention-deficit hyperactivity disorder, combined type Plan start lexapro 5 mg daily start wellbutrin XL 150mg qam 10 days after starting lexapro Medications: New escitalopram oxalate (Lexapro) 5 mg PO DAILY 30 tabs 0RF bupropion HCl XL (Wellbutrin XL) start January 27 2024 - take one tablet in am daily 150 mg PO QAM 30 tabs 0RF Counseling and coordination of Care Pt. Self Management counseling: Maintenance-social rhythm, Mod caffeine/ETOH intake, Sleep hygiene, Behavior activation, General coping skills and Problem solving Medication management counseling: Effectiveness, Side effects, Dosing range, Duration, Drug interaction and Adherence Diagnosis and Prognosis Counseling: Accuracy of diagnosis, Prognosis over time, Impact of diagnosis on life functions, Impact of family relationship, Problematic behaviors secondary to diagnosis and Adequacy of current interventions Details: I spent 75 minutes reviewing the record, seeing the patient and documenting in the medical record. Counseling provided to the patient/caregiver as outlined below. Addressed patient/caregiver concerns regarding current medication regime including effective adherence. Addressed patient/caregiver concerns regarding diagnosis and prognosis including accuracy of diagnosis, prognosis over time, impact of diagnosis. Addressed patient/caregiver concerns regarding impact of recent stressors. [facility] Medical History Degenerative disc disease Essential hypertension Generalized anxiety disorder Hypercholesterolemia Insomnia Leukopenia Obesity (BMI 30-39.9) Vitamin D deficiency Surgical History No pertinent past surgical history Family History Father Skin cancer Mother No problems noted. Social History Housing: House Alcohol intake: current Comment: stopped 3 years ago Patient Tobacco Use Status: Former Tobacco user Tobacco use type: Cigarette Years Smoked: smoked 28 years old had 10 year of smoking e-Cigarette/Vaping Use: Never Used Second Hand Smoke Exposure: Yes Advance Directives Date on File: 01/04/20 service: No Current occupational status: employed Cognitive needs: No Hearing needs: No Vision needs: No Social History: Lives with his he has 2 biological children and 3 stepchildren they are all adults age 25 and up he reports a several still live at home or spend the day there and the grandchildren come over every day he says the house is very busy he enjoys golfing and working around his house he currently works for an [employer] 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
== END 2024-01-17 16:35 | disposition home or self-care (01) ==
LOC: HO.HOP 15:00
PROVIDERS: PCP Internal Medicine; Visit Provider Clinical Nurse Specialist Psychiatric/Mental Health
DX: F41.1 Generalized anxiety disorder (principal); F90.2 Attention-deficit hyperactivity disorder, combined type
CPT/HCPCS: 90792

== ENCOUNTER → 2024-01-17 15:00 | Outpatient (BNVA) | payer BC, SELFPAY | PROVIDERS: PCP Internal Medicine; Visit Provider Clinical Nurse Specialist Psychiatric/Mental Health | DX: F41.1 Generalized anxiety disorder (principal); F90.2 Attention-deficit hyperactivity disorder, combined type | CPT/HCPCS: 90792 ==

== ENCOUNTER 2024-02-10 16:29 | Outpatient (AMB) | payer BC, SELFPAY ==
--- NOTE | 2024-02-10 16:38 | MHC.OFFVISPS ---
Intake Intake Visit Reasons: f/u consultation Vascular Physician Required: No Allergies simvastatin Allergy (Mild, Verified 01/13/24 16:52) Fatigued fenofibrate Allergy (Unknown, Verified 01/13/24 16:52) Unknown Medication List - Last Reconciled 02/10/24 by Elda Valdes, DILIP acetaminophen 500 mg PO Q6H PRN buprenorphine-naloxone 2-0.5 mg [place] bupropion HCl XL (Wellbutrin XL) 150 mg PO QAM escitalopram oxalate (Lexapro) 5 mg PO DAILY fenofibrate 160 mg PO DAILY folic acid 1 mg PO DAILY 30 days lisinopril 10 mg PO DAILY HPI- Psychiatric Chief Complaint: f/u consultation HPI Narrative: pt did not tolerate lexapro and wellbutrin- states he felt too tired o it - every afternoon he would get excessively sleepy; Hi sPHQ9= 16 and GAD7 = 15. He agrees to try an SNRI. discussed rationale, side effects, risks vs benefits. Past Psychiatric History: No inpatient level of care no PHP in the past. Zoloft and Prozac from his primary care he has never seen a web marketing specialist or psychiatrist in the past Subjective Subjective Subjective Medication Compliance: Yes Side effects from medications: No Review of Systems Medical Review of Systems: unchanged Mental Status Exam Mental Status Exam Patient Appearance: Well Grooomed and Appropriate Patient Orientation: Person, Place, Time and Situation Level of Consciousness: Awake and Alert Patient Behavior: Appropriate and Cooperative Mood Description: Calm and Anxious Affect Description: Anxious Patient Cognition Impaired: No Ability to Follow Directions: Good Speech Pattern: Clear Memory Description: Intact Hallucinations: None Delusions: Not Present Thought Process: Intact Judgement: Good Assessment and Plan Assessment & Plan (1) Generalized anxiety disorder: Status: Acute Code(s): F41.1 - Generalized anxiety disorder (2) Seasonal depression: Status: Acute Code(s): F33.8 - Other recurrent depressive disorders Plan rule out ADHD trial of cymbalta 30mg daily Medications: New duloxetine (Cymbalta) 30 mg PO DAILY 30 caps 1RF Discontinued escitalopram oxalate (Lexapro) Discontinued Reason: Doctor's Order 5 mg PO DAILY 30 tabs 0RF bupropion HCl XL (Wellbutrin XL) start January 27 2024 - take one tablet in am daily Discontinued Reason: Duplicate 150 mg PO QAM 30 tabs 0RF Counseling and coordination of Care Pt. Self Management counseling: General coping skills and Problem solving Medication management counseling: Effectiveness, Side effects, Dosing range, Duration, Drug interaction and Adherence Diagnosis and Prognosis Counseling: Accuracy of diagnosis, Prognosis over time, Impact of diagnosis on life functions, Impact of family relationship and Adequacy of current interventions Details: I spent [] minutes reviewing the record, seeing the patient and documenting in the medical record. Counseling provided to the patient/caregiver as outlined below. Addressed patient/caregiver concerns regarding current medication regime including effective adherence. Addressed patient/caregiver concerns regarding diagnosis and prognosis including accuracy of diagnosis, prognosis over time, impact of diagnosis. Addressed patient/caregiver concerns regarding impact of recent stressors. [facility] Medical History Degenerative disc disease Essential hypertension Generalized anxiety disorder Hypercholesterolemia Insomnia Leukopenia Obesity (BMI 30-39.9) Vitamin D deficiency Surgical History No pertinent past surgical history Family History Father Skin cancer Mother No problems noted. Social History Housing: House Alcohol intake: current Comment: stopped 3 years ago Patient Tobacco Use Status: Former Tobacco user Tobacco use type: Cigarette Years Smoked: smoked 28 years old had 10 year of smoking e-Cigarette/Vaping Use: Never Used Second Hand Smoke Exposure: Yes Advance Directives Date on File: 01/04/20 service: No Current occupational status: employed Cognitive needs: No Hearing needs: No Vision needs: No Social History: Lives with his he has 2 biological children and 3 stepchildren they are all adults age 25 and up he reports a several still live at home or spend the day there and the grandchildren come over every day he says the house is very busy he enjoys golfing and working around his house he currently works for an [employer] 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
== END 2024-02-10 16:54 | disposition home or self-care (01) ==
LOC: HO.HOP 16:30
PROVIDERS: PCP Internal Medicine; Visit Provider Clinical Nurse Specialist Psychiatric/Mental Health
DX: F41.1 Generalized anxiety disorder (principal); F33.8 Other recurrent depressive disorders
CPT/HCPCS: 99214

== ENCOUNTER → 2024-02-10 16:29 | Outpatient (BNVA) | payer BC, SELFPAY | PROVIDERS: PCP Internal Medicine; Visit Provider Clinical Nurse Specialist Psychiatric/Mental Health ==

== ENCOUNTER 2024-03-23 16:33 | Outpatient (AMB) | payer BC, SELFPAY ==
--- NOTE | 2024-03-23 17:17 | A.OFFPSYCH_ITS ---
Intake Intake Visit Reasons: f/u consultation Cane Piler Required: No Allergies simvastatin Allergy (Mild, Verified 01/13/24 16:52) Fatigued fenofibrate Allergy (Unknown, Verified 01/13/24 16:52) Unknown Medication List - Last Reconciled 03/23/24 by Elda Valdes APRN acetaminophen 500 mg PO Q6H PRN buprenorphine-naloxone 2-0.5 mg [place] dextroamphetamine-amphetamine 5 mg (Adderall) 5 mg PO BID fenofibrate 160 mg PO DAILY folic acid 1 mg PO DAILY 30 days lisinopril 10 mg PO DAILY HPI- Psychiatric Chief Complaint: f/u consultation HPI Narrative: Pt reports cymbalta caused sleep disruption and did not seem to help at all; mood and anxiety the same; p reports inattention, lack of focus and distractibility are making things hard for him at work and home; he is forgetful; has a hard time staying on task. no SI no HI; no ETOH use. Past Psychiatric History: No inpatient level of care no PHP in the past. Zoloft and Prozac from his primary care he has never seen a library specialist or psychiatrist in the past Subjective Subjective Subjective Medication Compliance: Yes Review of Systems Medical Review of Systems: unchanged Review of Systems Review of Systems Yes all other systems are reviewed and are negative Mental Status Exam Mental Status Exam Patient Appearance: Appropriate Patient Orientation: Person, Place, Time and Situation Level of Consciousness: Awake, Appropriate and Alert Patient Behavior: Appropriate, Cooperative and Distractible Mood Description: Constricted Affect Description: Constricted Patient Cognition Impaired: No Ability to Follow Directions: Good Speech Pattern: Clear Memory Description: Episodic Impaired (forgetful re; tasks etc) Hallucinations: None Delusions: Not Present Thought Process: Distracted Thought Content: positive for Intact Judgement: Good Assessment and Plan Assessment & Plan (1) ADHD (attention deficit hyperactivity disorder), combined type: Status: Acute Code(s): F90.2 - Attention-deficit hyperactivity disorder, combined type (2) Seasonal depression: Status: Acute Code(s): F33.8 - Other recurrent depressive disorders Plan stop cymbalta due to sleep disruption trial of adderall 5mg BID plan to switch to Long acting if tolerated Medications: New dextroamphetamine-amphetamine 5 mg (Adderall) administer doses at least 4-6 hours apart; Partial Fill upon patient request. 5 mg PO BID 60 tabs 0RF Discontinued duloxetine (Cymbalta) Discontinued Reason: Doctor's Order 30 mg PO DAILY 30 caps 1RF Counseling and coordination of Care Pt. Self Management counseling: Maintenance-social rhythm, Mod caffeine/ETOH intake, Nutrition education and improvement, Sleep hygiene, Behavior activation and Problem solving Medication management counseling: Effectiveness, Side effects, Dosing range, Duration, Drug interaction and Adherence Diagnosis and Prognosis Counseling: Accuracy of diagnosis, Prognosis over time, Impact of diagnosis on life functions, Impact of family relationship, Problematic behaviors secondary to diagnosis and Adequacy of current interventions Details: I spent 40 minutes reviewing the record, seeing the patient and documenting in the medical record. Counseling provided to the patient/caregiver as outlined below. Addressed patient/caregiver concerns regarding current medication regime including effective adherence. Addressed patient/caregiver concerns regarding diagnosis and prognosis including accuracy of diagnosis, prognosis over time, impact of diagnosis. Addressed patient/caregiver concerns regarding impact of recent stressors. [facility] Medical History Degenerative disc disease Essential hypertension Generalized anxiety disorder Hypercholesterolemia Insomnia Leukopenia Obesity (BMI 30-39.9) Vitamin D deficiency Surgical History No pertinent past surgical history Family History Father Skin cancer Mother No problems noted. Social History Housing: House Alcohol intake: current Comment: stopped 3 years ago Patient Tobacco Use Status: Former Tobacco user Tobacco use type: Cigarette Years Smoked: smoked 28 years old had 10 year of smoking e-Cigarette/Vaping Use: Never Used Second Hand Smoke Exposure: Yes Advance Directives Date on File: 01/04/20 service: No Current occupational status: employed Cognitive needs: No Hearing needs: No Vision needs: No Social History: Lives with his he has 2 biological children and 3 stepchildren they are all adults age 25 and up he reports a several still live at home or spend the day there and the grandchildren come over every day he says the house is very busy he enjoys golfing and working around his house he currently works for an [employer] 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
== END 2024-03-23 17:04 | disposition home or self-care (01) ==
LOC: HO.HOP 16:33
PROVIDERS: PCP Internal Medicine; Visit Provider Clinical Nurse Specialist Psychiatric/Mental Health
DX: F90.2 Attention-deficit hyperactivity disorder, combined type (principal); F33.8 Other recurrent depressive disorders
CPT/HCPCS: 99214

== ENCOUNTER 2024-04-09 16:31 | Outpatient (AMB) | payer BC, SELFPAY ==
--- NOTE | 2024-04-09 16:34 | A.OFFPSYCH_ITS ---
Intake Intake Visit Reasons: f/u consultation Gill Tender Required: No Allergies simvastatin Allergy (Mild, Verified 01/13/24 16:52) Fatigued fenofibrate Allergy (Unknown, Verified 01/13/24 16:52) Unknown Medication List - Last Reconciled 04/09/24 by Elda Valdes APRN acetaminophen 500 mg PO Q6H PRN buprenorphine-naloxone 2-0.5 mg [place]ia dextroamphetamine-amphetamine 5 mg (Adderall) 5 mg PO BID fenofibrate 160 mg PO DAILY folic acid 1 mg PO DAILY 30 days lisinopril 10 mg PO DAILY HPI- Psychiatric Chief Complaint: f/u consultation HPI Narrative: pt reports some improvement with adderall; reports increased focus and concentration; increased ability to stay on tasks and less forgetful; reports no side effects; pt feels it is helpful but doesn't last as long as his work day. PHQ9= 11 down from 16 and GAD7 = 10 down from 15. appetite and sleep intact Past Psychiatric History: No inpatient level of care no PHP in the past. Zoloft and Prozac from his primary care he has never seen a internet e commerce specialist or psychiatrist in the past Subjective Subjective Subjective Medication Compliance: Yes Side effects from medications: No Review of Systems Medical Review of Systems: unchanged Mental Status Exam Mental Status Exam Patient Appearance: Well Grooomed and Appropriate Patient Orientation: Person, Place, Time and Situation Level of Consciousness: Awake, Appropriate and Alert Patient Behavior: Appropriate, Talkative and Cooperative Mood Description: Appropriate and Anxious Affect Description: Appropriate and Anxious Ability to Follow Directions: Good Speech Pattern: Appropriate and Coherent Memory Description: Intact Hallucinations: None Delusions: Not Present Thought Process: Intact Thought Content: positive for Intact and positive for [place] Judgement: Fair Assessment and Plan Assessment & Plan (1) ADHD (attention deficit hyperactivity disorder), combined type: Status: Acute Code(s): F90.2 - Attention-deficit hyperactivity disorder, combined type (2) Generalized anxiety disorder: Status: Acute Code(s): F41.1 - Generalized anxiety disorder Plan Increase Adderall XR 20 mg qam start vitamn D supplement as below Medications: New cholecalciferol (vitamin D3) 25 mcg PO DAILY 90 caps 1RF dextroamphetamine-amphetamine 20 mg ER (Adderall XR) Partial Fill upon patient request. 20 mg PO QAM 30 caps 0RF Counseling and coordination of Care Pt. Self Management counseling: Maintenance-social rhythm, Mod caffeine/ETOH intake, Behavior activation, Cognitive restructuring and General coping skills Medication management counseling: Effectiveness, Side effects, Dosing range, Duration, Drug interaction and Adherence Diagnosis and Prognosis Counseling: Accuracy of diagnosis, Prognosis over time, Impact of diagnosis on life functions, Impact of family relationship, Problematic behaviors secondary to diagnosis and Adequacy of current inte rventions Details: I spent 40 minutes reviewing the record, seeing the patient and documenting in the medical record. Counseling provided to the patient/caregiver as outlined below. Addressed patient/caregiver concerns regarding current medication regime including effective adherence. Addressed patient/caregiver concerns regarding diagnosis and prognosis including accuracy of diagnosis, prognosis over time, impact of diagnosis. Addressed patient/caregiver concerns regarding impact of recent stressors. [facility] Medical History Degenerative disc disease Essential hypertension Generalized anxiety disorder Hypercholesterolemia Insomnia Leukopenia Obesity (BMI 30-39.9) Vitamin D deficiency Surgical History No pertinent past surgical history Family History Father Skin cancer Mother No problems noted. Social History Housing: House Alcohol intake: current Comment: stopped 3 years ago Patient Tobacco Use Status: Former Tobacco user Tobacco use type: Cigarette Years Smoked: smoked 28 years old had 10 year of smoking e-Cigarette/Vaping Use: Never Used Second Hand Smoke Exposure: Yes Advance Directives Date on File: 01/04/20 service: No Current occupational status: employed Cognitive needs: No Hearing needs: No Vision needs: No Social History: Lives with his he has 2 biological children and 3 stepchildren they are all adults age 25 and up he reports a several still live at home or spend the day there and the grandchildren come over every day he says the house is very busy he enjoys golfing and working around his house he currently works for an [employer] 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
--- OUTSIDE RECORDS SUMMARY | 2024-04-09 17:20 | XMS_ITS | Continuity of Care Document ---
Author Name [facility] Organization [facility] Care Team Providers Care Outreach Liaison Name Role Phone [facility] Unavailable Unavailable Problems Combined list of problems from Department of Defense and Veterans Affairs facilities. It does not include entries that were removed or entered in error. Problem Status Onset Date Problem Type Date of Resolution Comments Source Diagnosis: ICD-10-CM Z02.89 Encounter for other administrative examinations Active Diagnosis [facility] Encounters Combined list of: 1) Encounters from Department of Veterans Affairs facilities going back up to thelast 18 months. 2) Encounters from the Department of Defense facilities going back up to 280 months. Location Location Details Encounter Type Encounter Number Reason For Visit Attending Provider ADM Date DC Date Status Disposition Source [facility] Encounter [id number] Diagnos is: ICD-10- CM Z02.89 Encount er for other adminis trative examina tions<b r/> RJA WONG 10/19 [facility] Social History Combined list of available smoking, tobacco, and other social history from Department of Defense and Veterans Affairs facilities. Social History Type Response Date Comment Sourc e This section is an empty social history section. [facility]
== END 2024-04-09 16:48 | disposition home or self-care (01) ==
LOC: HO.HOP 16:31
PROVIDERS: PCP Internal Medicine; Visit Provider Clinical Nurse Specialist Psychiatric/Mental Health
DX: F90.2 Attention-deficit hyperactivity disorder, combined type (principal); F41.1 Generalized anxiety disorder
CPT/HCPCS: 99214

== ENCOUNTER → 2024-04-09 16:31 | Outpatient (BNVA) | payer BC, SELFPAY | PROVIDERS: PCP Internal Medicine; Visit Provider Clinical Nurse Specialist Psychiatric/Mental Health ==

== ENCOUNTER 2024-04-27 17:04 | Outpatient (AMB) | payer BC, SELFPAY ==
[2024-04-27 17:11] VITALS: BP 140/72; PULSE 70; O2SAT 97; BMI 33.3
--- NOTE | 2024-04-27 17:11 | MHC.PC.OV ---
Vital Signs 04/27/24 17:11 Height 5 ft 9 in Weight 225 lb 4 oz BMI 33.3 BP 140/72 H Blood Pressure Location Lt brachial Position Sitting Pulse 70 Pulse Source Pulse Oximeter Pulse Oximetry (%) 97 Oxygen Delivery Method Room Air Intake Visit Reasons: KATHIA, HTN Allergies simvastatin Allergy (Mild, Verified 01/13/24 16:52) Fatigued fenofibrate Allergy (Unknown, Verified 01/13/24 16:52) Unknown Tobacco use date assessed: 01/13/24 Dental Screening Dental Screen Date: 08/22/23 HPI KATHIA, HTN HPI Details The patient is a 53-year-old male presenting with a medication review and management of chronic conditions. The patient has a known history of Essential Hypertension, Attention Deficit Hyperactivity Disorder (ADHD), Hyperlipidemia, and Obesity. He reports that he has been prescribed two types of Adderall, with one being a 20 mg dose taken once daily. The patient notes improvements in focus while on Adderall. He has recently lost weight through dietary changes, stating that he stopped eating excessive junk food, which may have contributed to weight reduction. Additionally, the patient is on several medications including fenofibrate for cholesterol management, folic acid, vitamin D supplementation, and occasional Tylenol PM. Recent blood work from December indicated a triglyceride level of 219 (down from over 400) and a LDL ( bad cholesterol) level of 146. Triglycerides are improved, but LDL cholesterol remains above the desired goal. The patient noted that he experienced a higher than usual blood pressure reading during today's visit, attributed to a stressful day and not having eaten adequately. The patient also reported holly influenza recently but primarily works alone, which minimizes social contact. Furthermore, he experiences skin dryness exacerbated by cold weather. [facility] Medical History Degenerative disc disease Essential hypertension Generalized anxiety disorder Hypercholesterolemia Insomnia Leukopenia Obesity (BMI 30-39.9) Vitamin D deficiency Surgical History No pertinent past surgical history Family History Father Skin cancer Mother No problems noted. Social History Housing: House Alcohol intake: current Comment: stopped 3 years ago Patient Tobacco Use Status: Former Tobacco user Tobacco use type: Cigarette Years Smoked: smoked 28 years old had 10 year of smoking e-Cigarette/Vaping Use: Never Used Second Hand Smoke Exposure: Yes Advance Directives Date on File: 01/04/20 service: No Current occupational status: employed Cognitive needs: No Hearing needs: No Vision needs: No Questionnaire PHQ-9 Over the last 2 weeks, how often have you been bothered by any of the following problems? 1. Little interest or pleasure in doing things: not at all 2. Feeling down, depressed, or hopeless: not at all 3. Trouble falling or staying asleep, or sleeping too much: not at all 4. Feeling tired or having little energy: not at all 5. Poor appetite or overeating: not at all 6. Feeling bad about yourself - or that you are a failure or have let yourself or your family down: not at all 7. Trouble concentrating on things, such as reading the newspaper or watching television: not at all 8. Moving or speaking so slowly that other people could have noticed. Or the opposite - being so fidgety or restless that you have been moving around a lot more than usual: not at all 9. Thoughts that you would be better off or of hurting yourself in some way: not at all Total score: 0 Depression Screening Interpretation: Negative Depression Screening Done: Yes 30787 - PHQ-9 Billing: Yes Source: Developed by Drs. Bg Cunha, Barb Guardado, Dante Larsen and colleagues, with an educational sabas from [employer]. Thrive Questionnaire Date Thrive assessed: 04/27/24 I am a: Patient What is your living situation today?: I have a steady place to live Within the past 12 months, did the food you bought not last and you didn't have the money to get more?: Never true Within the past 12 months, did you worry whether your food would run out before you got money to buy more?: Never true Do you have trouble paying for medicines?: No Do you have trouble getting transportation to medical appointments?: No Do you have trouble paying your heating and electricity bill?: No Do you have trouble taking care of your child, family member or friend?: No Do you have trouble with day-to-day activities such as bathing, preparing meals, shopping, managing finances, etc.?: No Are you currently unemployed and looking for a job?: No Are you interested in more education?: No Please select the resources that you would like help with: None Currently or been in a relationship where the following occur: No concerns reported THRIVE Score: 0 AUDIT C Alcohol Use Questionnaire (AUDIT-C) 1. How often do you have a drink containing alcohol?: Never (Pt stopped drinking approximately 4-5 years ago.) 2. How many drinks containing alcohol do you have on a typical day when you are drinking?: 1 or 2 3. How often do you have six or more drinks on one occasion?: Never Total Score: 0 KATHIA-7 AMB Questionnaire KATHIA-7 Date KATHIA - 7 assessed: 04/27/24 Feeling nervous, anxious, or on edge: 0 = Not at all Not being able to stop or control worryin = Not at all Worrying too much about different things: 0 = Not at all Trouble relaxin = Not at all Being so restless that it is hard to sit still: 0 = Not at all Becoming easily annoyed or irritable: 0 = Not at all Feeling afraid as if something awful might happen: 0 = Not at all Total KATHIA-7 score (0-4 normal; 5-9 mild; 10-14 moderate; 15-21 severe): 0 Source: Developed by Drs. Bg Cunha, Barb Guardado, Dante Larsen and colleagues, with an educational sabas from [employer]. KATHIA-7 Assessment Billing KATHIA-7 Assessment Tool: KATHIA-7 Assessment 70363 Physical exam (Primary Care) Vital Signs: Last Vital Signs Pulse 70 04/27/24 17:11 BP 140/72 H 04/27/24 17:11 Pulse Ox 97 04/27/24 17:11 Oxygen Delivery Method Room Air 04/27/24 17:11 BMI result Body Mass Index 33.3 Tobacco/Smoking Status: Tobacco use Status Tobacco use date assessed 01/13/24 04/27/24 17:14 Patient Tobacco Use Status Former Tobacco user 04/27/24 17:14 Tobacco use type Cigarette 04/27/24 17:14 e-Cigarette/Vaping Use Never Used 04/27/24 17:14 PHQ-9: PHQ-9 Score PHQ-9: Total score 0 04/27/24 17:22 Depression Screening Interpretation: Negative Thrive Assessment: Date of Thrive Assessment Date Thrive assessed 04/27/24 04/27/24 17:22 Currently or been in a relationship where the following occur: No concerns reported Const General: alert; No acute distress Eyes Conjunctivae: conjunctivae normal Resp Auscultation: clear to auscultation bilaterally Cardio Rate: regular rate Rhythm: regular rhythm GI Inspection: Yes normal to inspection Extrem General: Yes normal to inspection and No edema Coding Level of Care Code Est Pt Level 4 (16348) Complex EM visit Add On G2211 Diagnoses ADHD (attention deficit hyperactivity disorder), combined type F90.2 Impaired glucose tolerance R73.02 Essential hypertension I10 Obesity (BMI 30-39.9) E66.9 Hypercholesterolemia E78.00 Generalized anxiety disorder F41.1 BPH (benign prostatic hyperplasia) N40.0 Additional Codes KATHIA-7 Assessment Billing - KATHIA-7 Assessment Tool: KATHIA-7 Assessment 50952 ([id number]) PHQ-9 - 93940 - PHQ-9 Billing: Yes ([id number]) Assessment & Plan Assessment & Plan (1) ADHD (attention deficit hyperactivity disorder), combined type: Code(s): F90.2 - Attention-deficit hyperactivity disorder, combined type Category: Medical Plan: doing better continue with med (2) Impaired glucose tolerance: Code(s): R73.02 - Impaired glucose tolerance (oral) Category: Medical (3) Essential hypertension: Code(s): I10 - Essential (primary) hypertension Category: Medical Plan: BP high today will monitor at home (4) Obesity (BMI 30-39.9): Code(s): E66.9 - Obesity, unspecified Category: Medical (5) Hypercholesterolemia: Code(s): E78.00 - Pure hypercholesterolemia, unspecified Category: Medical (6) Generalized anxiety disorder: Code(s): F41.1 - Generalized anxiety disorder Category: Medical (7) BPH (benign prostatic hyperplasia): Comment: Herbert Aguilar Code(s): N40.0 - Benign prostatic hyperplasia without lower urinary tract symptoms Category: Medical Plan - Monitor blood pressure regularly at home to manage Essential Hypertension effectively, especially given stressful situations and insufficient nutrition may increase levels. - Continue the current ADHD medication regimen with Adderall 20 mg once daily to maintain improved focus. Regular monitoring for side effects and effectiveness is recommended. - Encourage ongoing lifestyle modifications for Obesity, focusing on maintaining a healthy diet and weight reduction. - Continue fenofibrate for Hyperlipidemia management. A fasting lipid panel should be repeated in three months to reassess cholesterol levels. - The patient is advised to follow up on his influenza recovery measures and continue avoiding contact if symptoms persist. - Recommend the use of gloves and moisturizers frequently to manage dry skin due to cold exposure. - Continue the current vitamin D supplementation and use Tylenol PM as needed for pain relief. - Re-evaluate the need for further treatment or dosage adjustments based on follow-up in three months or sooner if the condition changes. Orders: Orders Prostate Specific Antigen Scr 3 Months E78.00 - Pure hypercholesterolemia, unspecified Free T4 (Free Thyroxine) 3 Months E78.00 - Pure hypercholesterolemia, unspecified Lipid Panel 3 Months E78.00 - Pure hypercholesterolemia, unspecified Reticulocyte Count 3 Months E78.00 - Pure hypercholesterolemia, unspecified Hemoglobin A1c 3 Months E78.00 - Pure hypercholesterolemia, unspecified Ferritin 3 Months E78.00 - Pure hypercholesterolemia, unspecified Complete Blood Count Auto Diff 3 Months E78.00 - Pure hypercholesterolemia, unspecified Comprehensive Met. Panel 3 Months E78.00 - Pure hypercholesterolemia, unspecified Thyroid Stimulating Hormone 3 Months E78.00 - Pure hypercholesterolemia, unspecified Vitamin B12 and Folate 3 Months E78.00 - Pure hypercholesterolemia, unspecified IRON PROFILE 3 Months E78.00 - Pure hypercholesterolemia, unspecified Medications: Discontinued dextroamphetamine-amphetamine 5 mg (Adderall) administer doses at least 4-6 hours apart; Partial Fill upon patient request. Discontinued Reason: Doctor's Order 5 mg PO BID 60 tabs 0RF
--- OUTSIDE RECORDS SUMMARY | 2024-04-27 20:06 | XMS_ITS | Continuity of Care Document ---
Author Name [facility] Organization [facility] Care Team Providers Care Machine Adjuster Helper Name Role Phone [facility] Unavailable Unavailable Problems Combined list of problems from Department of Defense and Veterans Affairs facilities. It does not include entries that were removed or entered in error. Problem Status Onset Date Problem Type Date of Resolution Comments Source Diagnosis: ICD-10-CM Z02.89 Encounter for other administrative examinations Active Diagnosis [facility] Encounters Combined list of: 1) Encounters from Department of Veterans Affairs facilities going back up to thelast 18 months. 2) Encounters from the Department of Defense facilities going back up to 280 months. Location Location Details Encounter Type Encounter Number Reason For Visit Attending Provider ADM Date DC Date Status Disposition [facility] Encounter [id number] Diagnos is: ICD-10- CM Z02.89 Encount er for other adminis trative examina tions<b r/> RAJ WONG 10/19 [facility] Social History Combined list of available smoking, tobacco, and other social history from Department of Defense and Veterans Affairs facilities. Social History Type Response Date Comment Sourc e This section is an empty social history section. [facility]
== END 2024-04-27 18:04 | disposition home or self-care (01) ==
PROVIDERS: PCP Internal Medicine; Visit Provider Internal Medicine
DX: I10 Essential (primary) hypertension (principal); F90.2 Attention-deficit hyperactivity disorder, combined type; E66.9 Obesity, unspecified; Z68.33 Body mass index [BMI] 33.0-33.9, adult; R73.02 Impaired glucose tolerance (oral); E78.00 Pure hypercholesterolemia, unspecified; F41.1 Generalized anxiety disorder; N40.0 Benign prostatic hyperplasia without lower urinary tract symptoms

== ENCOUNTER → 2024-04-27 17:04 | Outpatient (BNVA) | payer BC, SELFPAY | PROVIDERS: PCP Internal Medicine; Visit Provider Internal Medicine | DX: F90.2 Attention-deficit hyperactivity disorder, combined type (principal); R73.02 Impaired glucose tolerance (oral); I10 Essential (primary) hypertension; E66.9 Obesity, unspecified; E78.00 Pure hypercholesterolemia, unspecified; F41.1 Generalized anxiety disorder; N40.0 Benign prostatic hyperplasia without lower urinary tract symptoms; Z79.899 Other long term (current) drug therapy | CPT/HCPCS: 96127 ==

== ENCOUNTER → 2024-05-07 16:19 | Outpatient (BNVA) | payer BC, SELFPAY | PROVIDERS: PCP Internal Medicine; Visit Provider Clinical Nurse Specialist Psychiatric/Mental Health ==

== ENCOUNTER 2024-07-25 08:43 | Outpatient (REF) | payer BC, SELFPAY ==
[2024-07-25 09:07] LABS: MANUAL DIFF FLAG NO
[2024-07-25 10:22] LABS: Basophils Percent Auto 0.7 % (0-2); Eosinophils Absolute Auto 0.1 X10*3/uL (0.0-0.4); Eosinophils Percent Auto 1.2 % (0-4); Hematocrit 37.3 % (42.0-52.0); Hemoglobin 12.7 g/dl (14.0-18.0); Imm Gran Abs Auto 0.01 X10*3/uL (0.00-0.03); Imm Gran Pct Auto 0.2 % (0.0-0.4); Immature Retic Fraction 14.2 % (2.3-13.4); Lymphocytes Absolute Auto 1.9 X10*3/uL (1.2-4.9); Lymphocytes Percent Auto 45.4 % (20-40); Mean Corpuscular Hemoglobin 29.6 pg (27.0-33.0); Mean Corpuscular Volume 86.9 fL (80.0-98.0); Mean Platelet Volume 10.9 fL (9.4-12.4); Monocytes Absolute Auto 0.3 X10*3/uL (0.1-1.2); Monocytes Percent Auto 7.8 % (2-11); Neutrophils Absolute Auto 1.8 x10*3/uL (2.0-8.3); Neutrophils Percent Auto 44.7 % (45-73); Platelet Count 258 X10*3/uL (160-400); Red Blood Count 4.29 X10*6/uL (4.60-5.80); Red Cell Distribution Width 12.7 % (11.0-16.0); Retic HGB Equivalent 34.9 pg (30.0-35.0); Reticulocyte Percent 1.7 % (0.5-1.8); Reticulocytes Absolute 0.073 X10*6/uL (0.026-0.095); White Blood Count 4.1 X10*3/uL (4.8-10.8)
[2024-07-25 10:32] LABS: Estimated Average Glucose 114 mg/dL; Hemoglobin A1C 129.0689 umol/L; Hemoglobin A1c % 5.6 % (<6.0); Total Hemoglobin (HGBA1C) 3445.3876 umol/L
[2024-07-25 11:25] LABS: Alanine Aminotransferase 24 U/L (0-40); Alkaline Phosphatase 44 U/L (39-117); Anion Gap 10 (12-20); Aspartate Amino Transferase 27 U/L (5-37); Bilirubin Total 0.5 mg/dL (0.0-1.0); Blood Urea Nitrogen 17 mg/dL (9-16); Calcium 9.4 mg/dL (8.4-10.2); Carbon Dioxide 29 mmol/L (22-29); Chloride 104 mmol/L (96-108); Cholesterol 199 mg/dL (<200); Estimated Glomerular Filt Rate > 60; Ferritin 186 ng/mL (20-250); Free T4 (Free Thyroxine) 0.99 ng/dL (0.71-1.85); Glucose Random 94 mg/dL (60-115); HDL Cholesterol 32 mg/dL (>40); Iron 104 mcg/dL (45-160); LDL Cholesterol Calculated 139 mg/dL (<100); Percent Iron Saturation 37 % (15-50); Potassium 3.9 mmol/L (3.3-5.1); Sodium 139 mmol/L (135-145); Thyroid Stimulating Hormone 0.82 uIU/mL (0.32-4.0); Total Iron Binding Capacity 281 mcg/dL (228-428); Total Protein 6.7 g/dL (6.5-8.0); Triglycerides 140 mg/dL (<150); Unsaturated Iron Binding 177 ug/dL
[2024-07-25 11:36] LABS: Folate 11.6 ng/mL (> or = 4.0); Vitamin B12 400 pg/mL (200-900)
== END 2024-07-25 08:44 | disposition home or self-care (01) ==
LOC: HO.LAB 08:43
PROVIDERS: PCP Internal Medicine; Visit Provider Internal Medicine
DX: E78.00 Pure hypercholesterolemia, unspecified (principal); Z12.5 Encounter for screening for malignant neoplasm of prostate; Z13.1 Encounter for screening for diabetes mellitus
CPT/HCPCS: 36415; 80053; 80061; 82607; 82728; 82746; 83036; 83540; 84153; 84439; 84443; 85025; 85045

== ENCOUNTER 2024-07-27 16:50 | Outpatient (AMB) | payer BC, SELFPAY ==
[2024-07-27 16:52] VITALS: BP 132/70; PULSE 74; O2SAT 98; BMI 32.3
--- NOTE | 2024-07-27 16:52 | MHC.PC.OV ---
Vital Signs 07/27/24 16:52 Height 5 ft 9 in Weight 219 lb BMI 32.3 BP 132/70 Blood Pressure Location Lt brachial Position Sitting Pulse 74 Pulse Source Pulse Oximeter Pulse Oximetry (%) 98 Oxygen Delivery Method Room Air Intake Visit Reasons: 3 Months Allergies simvastatin Allergy (Mild, Verified 07/27/24 16:53) Fatigued fenofibrate Allergy (Unknown, Verified 07/27/24 16:53) Unknown Tobacco use date assessed: 07/27/24 Dental Screening Dental Screen Date: 07/27/24 Did you have a dental visit in the last 12 months?: Yes Did you have a dental problem in the last 6 months where you did not have access to dental care?: No Was dental information given to patient?: Patient has dentist [facility] Medical History Degenerative disc disease Essential hypertension Generalized anxiety disorder Hypercholesterolemia Insomnia Leukopenia Obesity (BMI 30-39.9) Vitamin D deficiency Surgical History No pertinent past surgical history Family History Father Skin cancer Mother No problems noted. Social History Housing: House Alcohol intake: current Comment: stopped 3 years ago Patient Tobacco Use Status: Former Tobacco user Tobacco use type: Cigarette Years Smoked: smoked 28 years old had 10 year of smoking e-Cigarette/Vaping Use: Never Used Second Hand Smoke Exposure: Yes Advance Directives Date on File: 01/04/20 service: No Current occupational status: employed Cognitive needs: No Hearing needs: No Vision needs: No Questionnaire PHQ-9 Over the last 2 weeks, how often have you been bothered by any of the following problems? 1. Little interest or pleasure in doing things: not at all 2. Feeling down, depressed, or hopeless: not at all 3. Trouble falling or staying asleep, or sleeping too much: not at all 4. Feeling tired or having little energy: not at all 5. Poor appetite or overeating: not at all 6. Feeling bad about yourself - or that you are a failure or have let yourself or your family down: not at all 7. Trouble concentrating on things, such as reading the newspaper or watching television: not at all 8. Moving or speaking so slowly that other people could have noticed. Or the opposite - being so fidgety or restless that you have been moving around a lot more than usual: not at all 9. Thoughts that you would be better off or of hurting yourself in some way: not at all Total score: 0 Depression Screening Interpretation: Negative Depression Screening Done: Yes 28959 - PHQ-9 Billing: Yes Source: Developed by Drs. Bg Cunha, Barb Guardado, Dante Larsen and colleagues, with an educational sabas from [employer]. Thrive Questionnaire Date Thrive assessed: 04/27/24 AUDIT C Alcohol Use Questionnaire (AUDIT-C) 1. How often do you have a drink containing alcohol?: Never (Pt stopped drinking approximately 4-5 years ago.) 2. How many drinks containing alcohol do you have on a typical day when you are drinking?: 1 or 2 3. How often do you have six or more drinks on one occasion?: Never Total Score: 0 KATHIA-7 AMB Questionnaire KATHIA-7 Date KATHIA - 7 assessed: 04/27/24 Source: Developed by Drs. Bg Cunha, Barb Guardado, Dante Larsen and colleagues, with an educational sabas from [employer]. Physical exam (Primary Care) Vital Signs: Last Vital Signs Pulse 74 07/27/24 16:52 BP 132/70 07/27/24 16:52 Pulse Ox 98 07/27/24 16:52 Oxygen Delivery Method Room Air 07/27/24 16:52 BMI result Body Mass Index 32.3 Tobacco/Smoking Status: Tobacco use Status Tobacco use date assessed 07/27/24 07/27/24 16:53 Patient Tobacco Use Status Former Tobacco user 07/27/24 16:53 Tobacco use type Cigarette 07/27/24 16:53 e-Cigarette/Vaping Use Never Used 07/27/24 16:53 PHQ-9: PHQ-9 Score PHQ-9: Total score 0 07/27/24 17:43 Depression Screening Interpretation: Negative Thrive Assessment: Date of Thrive Assessment Date Thrive assessed 04/27/24 07/27/24 16:53 Const General: alert; No acute distress HENMT Mouth/tongue images: 1. L side underneath tongue 5 mm ulcer lesion whitish Eyes Conjunctivae: conjunctivae normal Resp Auscultation: clear to auscultation bilaterally Cardio Rate: regular rate Rhythm: regular rhythm GI Inspection: Yes normal to inspection Extrem General: Yes normal to inspection and No edema Coding Level of Care Code Est Pt Level 4 (29724) Diagnoses Obesity (BMI 30-39.9) E66.9 Hypercholesterolemia E78.00 Essential hypertension I10 Impaired glucose tolerance R73.02 BPH (benign prostatic hyperplasia) N40.0 ADHD (attention deficit hyperactivity disorder), combined type F90.2 Tongue lesion K14.8 Additional Codes PHQ-9 - 68615 - PHQ-9 Billing: Yes ([id number]) Assessment & Plan Assessment & Plan (1) Obesity (BMI 30-39.9): Code(s): E66.9 - Obesity, unspecified Category: Medical Plan: Diet and exercise (2) Hypercholesterolemia: Code(s): E78.00 - Pure hypercholesterolemia, unspecified Category: Medical Plan: Avoid fried foods, chicken skin, eggs, butter margarine, pastries and meat. Be it pork or beef they have a lot of cholesterol LDL goal of less than 130 and triglyceride of less than 150 on fenofibrate 160 mg once a day (3) Essential hypertension: Code(s): I10 - Essential (primary) hypertension Category: Medical Plan: Continue with blood pressure medication. Decrease salt intake and exercise lisinopril 10 mg once a day (4) Impaired glucose tolerance: Code(s): R73.02 - Impaired glucose tolerance (oral) Category: Medical Plan: Decrease the amount of carbohydrate intake, pasta, bread, rice and potatoes are all sugar and that is aside from all the sweet stuff, remember that fruits are good but they are Sweet also. Blood work is good (5) BPH (benign prostatic hyperplasia): Comment: Herbert Aguilar Code(s): N40.0 - Benign prostatic hyperplasia without lower urinary tract symptoms Category: Medical Plan: Stable (6) ADHD (attention deficit hyperactivity disorder), combined type: Code(s): F90.2 - Attention-deficit hyperactivity disorder, combined type Category: Medical Plan: Continue with present medication of 25 mg once a day of Adderall. (7) Tongue lesion: Code(s): K14.8 - Other diseases of tongue Category: Medical Plan: will be seeing Dr. Richard advised to mentiopn this lesion since this is months already. Plan History of Present Illness The patient is a 53-year-old male presenting with follow-up needs for chronic medical conditions and a recent episode of sinusitis. The patient has a history of obesity and hypercholesterolemia, with a noted 6-pound weight loss. He managed this with dietary changes, avoiding ice cream and reducing soda intake. He also has essential hypertension, which is currently treated with Lisinopril 10 mg once daily, and impaired glucose tolerance with a recent hemoglobin A1c of 5.6. His benign prostatic hyperplasia has been stable with no significant changes. The patient has attention-deficit/hyperactivity disorder, for which he remains on Adderall 25 mg once daily. In addition to his chronic conditions, the patient recently experienced sinus-related issues beginning approximately three weeks ago, characterized by dark green mucus drainage and pressure that has since improved with treatment, including Amoxicillin. He denies current pain but reports persistent morning pressure that alleviates with drainage. The patient also raised concerns about a chronic sore under his tongue, likely irritated by a sharp tooth edge. The patient is stable with mild chronic anemia and leukopenia; both have been longstanding without significant changes. Hyponatremia, potassium levels, blood glucose, and iron count are normal. His cholesterol levels have improved under treatment with Fenofibrate 160 mg daily, with LDL and triglyceride levels better controlled. Health Maintenance - Cholesterol management with a goal LDL <130 mg/dL, triglycerides <150 mg/dL. - Continued fenofibrate for hypercholesterolemia. - Manage hypertension with Lisinopril 10 mg daily. - ADHD managed with Adderall 25 mg daily. - Monitor PSA, vitamin B12, folic acid, thyroid - all currently within normal limits. - Allergy shots for allergic rhinitis, advised potential need for further evaluation due to persistent symptoms. - Discussed ongoing efforts to reduce weight and manage dietary intake. Social History - Patient has significantly reduced intake of ice cream and sugary beverages to help manage weight and improve cholesterol levels. - Consumes soda occasionally, identified as an area for improvement. - Currently reducing Suboxone, with a goal to discontinue next month. Review of Systems - Cardiovascular: Denies significant changes or new symptoms. - Respiratory: Reports sinus pressure, drainage improved on treatment. Denies chest pain or difficulty breathing. - Gastrointestinal: Denies digestive issues. - Neurological: Denies headaches or neuropathy. - Musculoskeletal: Denies muscle pain or weakness. - Hematologic: Reports longstanding mild anemia and leukopenia. - Endocrine: Blood glucose levels monitored; denies new symptoms. - Psychological: Reports ongoing management of ADHD; denies depression. - Pain: Denies acute pain, reports sore from sharp tooth. Physical Exam - Oral Cavity- Noted sore under the tongue, potentially irritated by a sharp tooth. Results - Labs: Mild chronic anemia, stable leukopenia, normal platelet count. - Electrolytes and Renal Function: Normal. - Glucose: Normal fasting glucose, hemoglobin A1c 5.6. - Lipid Panel: Total cholesterol improved to 200 mg/dL from 227 mg/dL, LDL improved to 139 mg/dL from 146 mg/dL, triglycerides reduced to 140 mg/dL from 219 mg/dL. - PSA: Within normal limits. - Vitamin B12, Folic Acid, Thyroid Function: Within normal limits. Plan I have reviewed the patient's chronic conditions during this visit. The current management for hypertension with Lisinopril is stable. ADHD is effectively managed with Adderall 25 mg daily. The recent improvement in hypercholesterolemia under fenofibrate continues to meet target cholesterol and triglyceride levels. Anemia and leukopenia are being monitored with no further intervention required. Allergic rhinitis is persistently treated with allergy shots, and sinus issues are improving with antibiotic therapy. Follow-up is needed if persistent oral sores do not resolve. I have provided support for the patient?s goal to taper off Suboxone. The patient is advised to maintain dietary efforts to improve weight and health outcomes. Patient was informed and verbally consented to the use of an ambient scribe for clinic note documentation during this visit. Discussion Notes In our conversation, I emphasized the importance of maintaining the current treatment regimen for chronic conditions such as hypertension and hypercholesterolemia. We discussed ADHD management, including the efficacy of the current Adderall dose. I outlined the benefits and the reasoning behind continuing fenofibrate. We reviewed the risks of non-compliance with medication and the potential need for further intervention regarding cholesterol. On sinusitis treatment, I shared that the provided antibiotics should resolve current symptoms. Discussions covered the sinus and allergy management, and I recommended observation for oral lesions. I supported the discontinuation of Suboxone and discussed its importance. Emphasis was on health maintenance through continued lifestyle adjustments, specifically dietary changes to lower cholesterol and weight management. Patient Instructions - Take Lisinopril 10 mg daily as prescribed for blood pressure. - Continue Adderall 25 mg once a day for ADHD. - Maintain fenofibrate 160 mg daily to manage cholesterol. - Monitor and report if sore under the tongue worsens or persists. - Follow through with allergy shots, and monitor sinus symptoms. - Maintain efforts to reduce soda intake. - Contact the clinic if any new symptoms arise or if current symptoms worsen. Medications: Refilled dextroamphetamine-amphetamine 25 mg ER (Adderall XR) Partial Fill upon patient request. 25 mg PO QAM 30 caps 0RF
--- OUTSIDE RECORDS SUMMARY | 2024-07-27 19:06 | XMS_ITS | Continuity of Care Document ---
Author Name [facility] Organization [facility] Care Team Providers Care Claim Trainee Name Role Phone [facility] Unavailable Unavailable Social History Combined list of available smoking, tobacco, and other social history from [facility] facilities. Social History Type Response Date Comment Sourc e This section is an empty social history section. [facility]
== END 2024-07-27 17:46 | disposition home or self-care (01) ==
LOC: HO.HMCH 16:51
PROVIDERS: PCP Internal Medicine; Visit Provider Internal Medicine
DX: I10 Essential (primary) hypertension (principal); E66.9 Obesity, unspecified; Z68.32 Body mass index [BMI] 32.0-32.9, adult; E78.00 Pure hypercholesterolemia, unspecified; R73.02 Impaired glucose tolerance (oral); N40.0 Benign prostatic hyperplasia without lower urinary tract symptoms; F90.2 Attention-deficit hyperactivity disorder, combined type; K14.8 Other diseases of tongue

== ENCOUNTER → 2024-07-27 16:50 | Outpatient (BNVA) | payer BC, SELFPAY | PROVIDERS: PCP Internal Medicine; Visit Provider Internal Medicine | DX: E66.9 Obesity, unspecified (principal); Z68.32 Body mass index [BMI] 32.0-32.9, adult; E78.00 Pure hypercholesterolemia, unspecified; I10 Essential (primary) hypertension; R73.02 Impaired glucose tolerance (oral); N40.0 Benign prostatic hyperplasia without lower urinary tract symptoms; F90.2 Attention-deficit hyperactivity disorder, combined type; K14.8 Other diseases of tongue; Z79.899 Other long term (current) drug therapy | CPT/HCPCS: 96127 ==

== ENCOUNTER 2024-11-16 16:05 | Outpatient (AMB) | payer BC, SELFPAY ==
[2024-11-16 16:07] VITALS: BP 122/70; PULSE 93; O2SAT 97; BMI 31.9
--- NOTE | 2024-11-16 16:07 | MHC.PC.OV ---
Vital Signs 11/16/24 16:07 Height 5 ft 9 in Weight 216 lb BMI 31.9 BP 122/70 Blood Pressure Location Lt brachial Position Sitting Pulse 93 Pulse Source Pulse Oximeter Pulse Oximetry (%) 97 Oxygen Delivery Method Room Air Intake Visit Reasons: annual exam/ ADHD Intake Note: Referral for allergy shots Allergies simvastatin Allergy (Mild, Verified 11/16/24 16:07) Fatigued Medication List - Last Reconciled 11/16/24 by Elmer Chacko MD acetaminophen 500 mg PO Q6H PRN buprenorphine-naloxone 2-0.5 mg Ramsey cholecalciferol (vitamin D3) 25 mcg PO DAILY dextroamphetamine-amphetamine 25 mg ER (Adderall XR) 25 mg PO QAM fenofibrate 160 mg PO DAILY folic acid 1 mg PO DAILY 30 days lisinopril 10 mg PO DAILY Tobacco use date assessed: 07/27/24 Dental Screening Dental Screen Date: 07/27/24 [facility] Medical History Degenerative disc disease Essential hypertension Generalized anxiety disorder Hypercholesterolemia Insomnia Leukopenia Obesity (BMI 30-39.9) Vitamin D deficiency Surgical History No pertinent past surgical history Family History Father Skin cancer Mother No problems noted. Social History (Updated 11/16/24 @ 16:30 by Elmer Chacko MD) Housing: House Alcohol intake: current Comment: stopped 3 years ago- oncea month 5-6 drinks (10/2024) Patient Tobacco Use Status: Former Tobacco user Tobacco use type: Cigarette Years Smoked: smoked 28 years old had 10 year of smoking e-Cigarette/Vaping Use: Never Used Second Hand Smoke Exposure: Yes Advance Directives Date on File: 01/04/20 service: No Current occupational status: employed Cognitive needs: No Hearing needs: No Vision needs: No Questionnaire PHQ-9 Over the last 2 weeks, how often have you been bothered by any of the following problems? 1. Little interest or pleasure in doing things: several days 2. Feeling down, depressed, or hopeless: several days 3. Trouble falling or staying asleep, or sleeping too much: several days 4. Feeling tired or having little energy: several days 5. Poor appetite or overeating: several days 6. Feeling bad about yourself - or that you are a failure or have let yourself or your family down: several days 7. Trouble concentrating on things, such as reading the newspaper or watching television: several days 8. Moving or speaking so slowly that other people could have noticed. Or the opposite - being so fidgety or restless that you have been moving around a lot more than usual: several days 9. Thoughts that you would be better off or of hurting yourself in some way: not at all Total score: 8 Depression Screening Interpretation: Positive Depression Screening Done: Yes Source: Developed by Drs. Bg Cunha, Barb Guardado, Dante Larsen and colleagues, with an educational sabas from [employer]. Thrive Questionnaire Date Thrive assessed: 04/27/24 I am a: Patient What is your living situation today?: I choose not to answer this question Within the past 12 months, did the food you bought not last and you didn't have the money to get more?: I choose not to answer this question Within the past 12 months, did you worry whether your food would run out before you got money to buy more?: I choose not to answer this question Do you have trouble paying for medicines?: I choose not to answer this question Do you have trouble getting transportation to medical appointments?: I choose not to answer this question Do you have trouble paying your heating and electricity bill?: I choose not to answer this question Do you have trouble taking care of your child, family member or friend?: I choose not to answer this question Do you have trouble with day-to-day activities such as bathing, preparing meals, shopping, managing finances, etc.?: I choose not to answer this question Are you currently unemployed and looking for a job?: I choose not to answer this question Are you interested in more education?: I choose not to answer this question Please select the resources that you would like help with: None Currently or been in a relationship where the following occur: I choose not to answer THRIVE Score: 0 AUDIT C Alcohol Use Questionnaire (AUDIT-C) 1. How often do you have a drink containing alcohol?: Never 3. How often do you have six or more drinks on one occasion?: Never Total Score: 0 KATHIA-7 AMB Questionnaire KATHIA-7 Date KATHIA - 7 assessed: 04/27/24 Feeling nervous, anxious, or on edge: 1 = Several days Not being able to stop or control worryin = Several days Worrying too much about different things: 1 = Several days Trouble relaxin = Several days Being so restless that it is hard to sit still: 1 = Several days Becoming easily annoyed or irritable: 1 = Several days Feeling afraid as if something awful might happen: 1 = Several days Total KATHIA-7 score (0-4 normal; 5-9 mild; 10-14 moderate; 15-21 severe): 7 Source: Developed by Drs. Bg Cunha, Barb Guardado, Dante Larsen and colleagues, with an educational sabas from [employer]. Review of Systems Const Denies poor appetite and Denies weakness Eyes Denies no additional complaints ENT Reports Normal hearing present, Denies dizziness, Denies nasal congestion, Denies tinnitus and Denies sore throat Card Denies chest pain, Denies syncope, Denies rapid heart rate and Denies dyspnea Resp Denies cough and Denies dyspnea GI Denies change in stool character, Reports constipation, Denies diarrhea, Denies nausea and Denies vomiting Denies dysuria and Denies urinary frequency Neuro Reports Normal hearing present, Denies confusion, Denies dizziness, Denies syncope and Denies weakness Psych Denies confusion Physical exam (Primary Care) Vital Signs: Last Vital Signs Pulse 93 11/16/24 16:07 BP 122/70 11/16/24 16:07 Pulse Ox 97 11/16/24 16:07 Oxygen Delivery Method Room Air 11/16/24 16:07 BMI result Body Mass Index 31.9 Tobacco/Smoking Status: Tobacco use Status Tobacco use date assessed 07/27/24 11/16/24 16:11 Patient Tobacco Use Status Former Tobacco user 11/16/24 16:30 Tobacco use type Cigarette 11/16/24 16:30 e-Cigarette/Vaping Use Never Used 11/16/24 16:30 PHQ-9: PHQ-9 Score PHQ-9: Total score 8 11/16/24 16:25 Depression Screening Interpretation: Positive Thrive Assessment: Date of Thrive Assessment Date Thrive assessed 04/27/24 11/16/24 16:11 Currently or been in a relationship where the following occur: I choose not to answer Const General: No confusion Orientation/consciousness: No confusion HENMT Head: Yes normocephalic Ears: external ears normal and TM's normal bilaterally Face and sinus: Yes normal facial exam Mouth: moist mucous membranes Throat: Yes tonsils normal Eyes Conjunctivae: conjunctivae normal Pupils: Equal, round and reactive pupils present and Pupil accommodation reflex normal Direct Ophthalmoscopy: normal light reflex Neck Neck: No lymphadenopathy Thyroid: Thyroid normal Chest Chest palpation & inspection: normal inspection of the chest Resp Effort & Inspection: normal respiratory effort and no audible wheezes Auscultation: clear to auscultation bilaterally, no crackles, no wheezes and lung sounds not diminished Cardio Rate: regular rate Rhythm: regular rhythm Peripheral pulses: radial pulses present and dorsalis pedis present GI Palpation (GI): no masses Auscultation: normal bowel sounds and normoactive bowel sounds Rectal Exam - Male: Yes deferred Skin General skin exam: no rashes or lesions noted Rashes: no rashes Neuro General: No confusion Cranial nerves: Yes Equal, round and reactive pupils present and Yes Normal hearing present Cognition (Neuro): normal cognition Gait exam (Neuro): Normal gait present Motor exam (neuro): 5/5 motor strength present throughout Deep tendon reflexes (DTR's): Right brachioradialis reflex intensity grade: 2+, Left brachioradialis reflex intensity grade: 2+, Right patellar reflex intensity grade: 2+ and Left patellar reflex intensity grade: 2+ Extrem General: No edema Coding Level of Care Code Est Pt Prev Care 40-64y(20947) Diagnoses Annual physical exam Z00.00 Obesity (BMI 30-39.9) E66.9 Impaired glucose tolerance R73.02 Essential hypertension I10 Hypercholesterolemia E78.00 BPH (benign prostatic hyperplasia) N40.0 Anemia D64.9 Degenerative disc disease ADHD (attention deficit hyperactivity disorder), combined type F90.2 Bilateral hand numbness R20.0 Assessment & Plan Assessment & Plan (1) Annual physical exam: Code(s): Z00.00 - Encounter for general adult medical examination without abnormal findings Category: Medical Plan: Patient is advised to eat healthy, keep well hydrated, keep active and have adequate sleep. (2) Obesity (BMI 30-39.9): Code(s): E66.9 - Obesity, unspecified Category: Medical Plan: Diet and exercise (3) Impaired glucose tolerance: Code(s): R73.02 - Impaired glucose tolerance (oral) Category: Medical Plan: Decrease the amount of carbohydrate intake, pasta, bread, rice and potatoes are all sugar and that is aside from all the sweet stuff, remember that fruits are good but they are Sweet also. (4) Essential hypertension: Code(s): I10 - Essential (primary) hypertension Category: Medical Plan: Continue with blood pressure medication. Decrease salt intake and exercise on lisinopril 10 mg once a day (5) Hypercholesterolemia: Code(s): E78.00 - Pure hypercholesterolemia, unspecified Category: Medical Plan: Avoid fried foods, chicken skin, eggs, butter margarine, pastries and meat. Be it pork or beef they have a lot of cholesterol LDL goal of less than 130 and triglyceride of less than 150. On fenofibrate (6) BPH (benign prostatic hyperplasia): Comment: Herbert Aguilar Code(s): N40.0 - Benign prostatic hyperplasia without lower urinary tract symptoms Category: Medical Plan: Stable (7) Anemia: Code(s): D64.9 - Anemia, unspecified Category: Medical Plan: Continuing to monitor. Stable (8) Degenerative disc disease: Comment: Lumbar degenerative disc Category: Medical Plan: Continue with present medication as needed (9) ADHD (attention deficit hyperactivity disorder), combined type: Code(s): F90.2 - Attention-deficit hyperactivity disorder, combined type Category: Medical Plan: Continue with medication (10) Bilateral hand numbness: Code(s): R20.0 - Anesthesia of skin Category: Medical Plan History of Present Illness The patient is a 53-year-old male presenting for a physical examination and wellness visit. The patient has a history of obesity, with a recent weight loss of 3 pounds since June. He has been diagnosed with hypercholesterolemia, hypertension, generalized anxiety disorder, and impaired glucose tolerance. His last blood work in June showed anemia with hemoglobin at 12.7 g/dL and hematocrit at 37.3%, along with mild leukopenia. The patient also has a history of degenerative disc disease, benign prostatic hyperplasia, and attention deficit hyperactivity disorder. He reports no new diagnoses or surgeries since his last visit. His family history includes skin cancer in his father and dementia. He denies any family history of colon cancer or heart attacks. The patient reports tinnitus and has been using hearing aids, although he feels too young for them. He denies any chest pain, shortness of breath, or gastrointestinal issues. He has a trigger finger in one of his fingers, which locks up occasionally, and he has been using braces at night to manage the symptoms. He has a history of working with his hands, which may contribute to this condition. Health Maintenance - Colonoscopy up to date as of December 2019 - Shingles vaccination: One dose received, second dose recommended for increased efficacy - Lifestyle: Advised to maintain a healthy diet and exercise regimen Social History - Employment: Works for an [employer], previously in the - Alcohol use: Consumes alcohol infrequently, approximately once a month, with occasional binge drinking - Tobacco use: Denies current use - Recreational drug use: Denies use due to holding a class 2 license - Exercise: Engages in physical activity as part of lifestyle management Review of Systems - General: Reports feeling tired today. Denies fever, chills, or weight gain. - Cardiovascular: Denies chest pain, palpitations, or syncope. - Respiratory: Denies dyspnea, cough, or wheezing. - Gastrointestinal: Denies nausea, vomiting, diarrhea, or constipation. - Genitourinary: Reports nocturia a couple of times per night. Denies dysuria or hematuria. - Neurological: Reports tinnitus and intermittent numbness in arms. Denies dizziness or headaches. - Musculoskeletal: Reports trigger finger with occasional locking. Denies joint pain or swelling. Physical Exam General: Cooperative, healthy appearing, comfortable, no acute distress, well developed, but noted weight loss of 3 pounds since June. Orientation: Patient oriented x3 Limitations: No limitations Head: Normal to inspection Ears: Hearing grossly normal bilaterally, but patient reports having tinnitus and uses hearing aids. Nose: Normal external nose present Face and sinus: Normal facial exam Eyes: Appearance normal, both eyes and all related structures. Patient advised to wear glasses for distance. Neck: Normal visual inspection and Yes full ROM Respiratory: Normal respiratory effort and able to speak in complete sentences. Clear to auscultation bilaterally Cardiovascular: Regular rate and rhythm. Normal S1 and S2 GI: Normal to inspection. Soft to palpation and nontender Skin: No rashes or lesions noted, but patient reports a family history of skin cancer and has some skin changes on the back. Neuro: Patient oriented x3. Reports numbness in arms at night, wears braces for suspected carpal tunnel syndrome. Extremities: Normal to inspection. Reports trigger finger and occasional swelling in fingers upon waking. Results - Labs: Hemoglobin 12.7 g/dL, Hematocrit 37.3%, mild leukopenia, LDL cholesterol 139 mg/dL - Labs: Electrolytes, renal function, blood sugar, hemoglobin A1c, liver function, B12, and folic acid within normal limits Plan The patient will continue with the current medication regimen, including lisinopril for hypertension and fenofibrate for hypercholesterolemia, with a goal to reduce LDL cholesterol to less than 130 mg/dL and triglycerides to less than 150 mg/dL. A follow-up blood test is planned for six months to monitor anemia and leukopenia. The patient is advised to maintain a healthy diet and exercise regimen to support weight management and overall health. A nerve conduction study is recommended to evaluate the severity of the trigger finger and associated symptoms. The patient is encouraged to complete the shingles vaccination series for enhanced protection. Patient was informed and verbally consented to the use of an ambient scribe for clinic note documentation during this visit. Discussion Notes During the visit, I discussed the importance of continuing the current medication regimen for hypertension and hypercholesterolemia, emphasizing the goal of reducing LDL cholesterol and triglycerides. I recommended a follow-up blood test in six months to monitor anemia and leukopenia, and advised on maintaining a healthy lifestyle through diet and exercise. We discussed the need for a nerve conduction study to assess the trigger finger and the benefits of completing the shingles vaccination series. Patient Instructions - Continue taking lisinopril and fenofibrate as prescribed. - Schedule a follow-up blood test in six months. - Maintain a healthy diet and exercise regularly. - Complete the shingles vaccination series. - Follow up with a nerve conduction study as recommended. Orders: Orders NE electromyogram (EMG) Today R20.0 - Anesthesia of skin Thyroid Stimulating Hormone 6 Months R73.02 - Impaired glucose tolerance (oral) Complete Blood Count Auto Diff 6 Months R73.02 - Impaired glucose tolerance (oral) Prostate Specific Antigen Scr 6 Months R73.02 - Impaired glucose tolerance (oral) Lipid Panel 6 Months E78.00 - Pure hypercholesterolemia, unspecified, R73.02 - Impaired glucose tolerance (oral) IRON PROFILE 6 Months R73.02 - Impaired glucose tolerance (oral) NE nerve conduction velocity Today R20.0 - Anesthesia of skin Hemoglobin A1c 6 Months R73.02 - Impaired glucose tolerance (oral) Free T4 (Free Thyroxine) 6 Months R73.02 - Impaired glucose tolerance (oral) Comprehensive Met. Panel 6 Months R73.02 - Impaired glucose tolerance (oral) Vitamin B12 and Folate 6 Months R73.02 - Impaired glucose tolerance (oral) Ferritin 6 Months R73.02 - Impaired glucose tolerance (oral) Reticulocyte Count 6 Months R73.02 - Impaired glucose tolerance (oral) Referrals Pulmonology Referral T78.40XA - Allergy, unspecified, initial encounter
--- OUTSIDE RECORDS SUMMARY | 2024-11-16 16:17 | XMS_ITS | Patient Health Record ---
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 Role Phone Po Elmer PINK Primary Care Provider Bg Perdomo [phone] Allergies Allergen (clinical drug ingredient) Drug/Non Drug Allergy documented on EMR Reaction Allergy Type Onset Date Status simvastatin Simvastatin Unknown Drug Allergy Act lucy Reason For Referral No Information Medications Medication SIG (Take, Route, Fr equency, Duration) Notes Start Date End Date Status Fish Oil 500 MG 1 capsule Orally Twi ce a day for 30 day(s) Active Tylenol 1 tab Oral prn Activ e Lisinopril 5 MG TAKE 1 TABLET BY DAYSI TH EVERY DAY Oral for 90 Active Immunizations Vaccine Route Administration Date Status Comme nts Influenza Unknown 09/29/2019 Refused Social History Tobacco Use: Social History Observation Description Date Details (start date - stop date) Former Smoker NA - NA Tobacco Use/Smoking Question Answer Notes Patient is a former smoker When did you stop smoking? 20 years ago How long has it been since you last smoked? > 10 years Alcohol Screen Question Answer Notes Did you have a drink contain ing alcohol in the past year? Yes How often did you have a dri nk containing alcohol in the past year? Never (0 point) How many drinks did you have on a typical day when you were drinking in the past year? 1 or 2 drinks (0 point) How often did you have 6 or more drinks on one occasion in the past year? Never (0 point) Points 0 Interpretation Negative Section Notes: Nonsmoker; no sig alcohol Problems Problem Type SNOMED Code ICD Code Onset Dates Problem Status W/U Status Risk Notes Problem [id number] Encounter for screening for malignant neoplasm of colon (Z12.11) Active confirmed Problem [id number] Preprocedural examination (Z01.818) Active confirmed Plan Of Treatment Future Test Test Name Order Date COLONOSCOPY 09/29/2019 Insurance Providers Payer Name Payer Address Payer Phone Subscriber Number Group Number Insured Name Patient Relationship to Insured Coverage Start Date Coverage End Date [facility] [address] [facility] [place] [phone] [id number] KRISTEN ELY Self - patient is the insured Medical (General) History Medical History History ICD Code Denies [place],DM,CVA,Lung disease,renal dise ase HTN Negative colonoscopy in 2002 except for hemorrhoids and hyperplastic polyps Surgical History Surgery Date(Month/Year)
== END 2024-11-16 16:50 | disposition home or self-care (01) ==
LOC: HO.HMCH 16:06
PROVIDERS: PCP Internal Medicine; Visit Provider Internal Medicine
DX: Z00.00 Encounter for general adult medical examination without abnormal findings (principal); E66.9 Obesity, unspecified; R73.02 Impaired glucose tolerance (oral); Z68.31 Body mass index [BMI] 31.0-31.9, adult; I10 Essential (primary) hypertension; E78.00 Pure hypercholesterolemia, unspecified; N40.0 Benign prostatic hyperplasia without lower urinary tract symptoms; D64.9 Anemia, unspecified; F90.2 Attention-deficit hyperactivity disorder, combined type; R20.0 Anesthesia of skin

== ENCOUNTER 2024-12-09 14:10 | Outpatient (AMB) | payer BC, SELFPAY ==
--- OUTSIDE RECORDS SUMMARY | 2024-12-09 17:24 | XMS_ITS | Patient Health Record ---
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 Name Role Phone Po Elmer PINK Primary Care Provider Bg Perdomo [phone] Allergies Allergen (clinical drug ingredient) Drug/Non Drug [...] Problem Status W/U Status Risk Notes Problem [id number] Encounter for screening for malignant neoplasm of colon (Z12.11) Active confirmed Problem [id number] Preprocedural examination (Z01.818) Active confirmed Plan Of Treatment Future Test Test Name Order Date COLONOSCOPY 09/29/2019 Insurance Providers Payer Name Payer Address Payer Phone Subscriber Number Group Number Insured Name Patient Relationship to Insured Coverage Start Date Coverage End Date [facility] [address] [place] [phone] [id number] KRISTEN ELY Self - patient is the insured Medical (General) History Medical History History ICD Code Denies [place],DM,CVA,Lung disease,renal dise ase HTN Negative colonoscopy in 2002 except for hemorrhoids and hyperplastic polyps Surgical History Surgery Date(Month/Year)
== END 2024-12-09 14:13 | disposition home or self-care (01) ==
LOC: HO.HMGAL 14:10
PROVIDERS: PCP Internal Medicine; Visit Provider Registered Nurse Emergency
DX: J30.89 Other allergic rhinitis (principal)
CPT/HCPCS: 95117; 95165

== ENCOUNTER 2025-01-15 14:18 | Outpatient (REF) | payer BC, SELFPAY ==
--- NOTE | 2025-01-15 14:21 | EMG_ITS ---
Chief complaint: Hand numbness, somewhat chronic, without any shoulder or neck pain. Reason for referral: Evaluate for Carpal Tunnel Syndrome Referred by: Dr. Chacko Procedure done: Bilateral upper extremities NCS/EMG Precautions and/or limitations: None The limb temperature was monitored continuously and remained between 32-36 degrees C during the performance of the NCS. Ulnar motor NCS was performed with moderate elbow flexion between 70-90 degrees, with across-elbow distance of 10 cm. Nerve Conduction Studies Anti Sensory Summary Table ?Stim Site NR Onset (ms) Norm Onset (ms) Peak (ms) Norm Peak (ms) O-P Amp (?V) Norm O-P Amp Site1 Site2 Delta-0 (ms) Dist (cm) Wang (m/s) Norm Wang (m/s) Left Median Anti Sensory (2nd Digit) Wrist ? 3.8 4.6 <3.6 11.1 >10 Wrist 2nd Digit 3.8 14.0 37 Right Median Anti Sensory (2nd Digit) Wrist ? 3.7 4.8 <3.6 15.5 >10 Wrist 2nd Digit 3.7 14.0 38 Right Radial Anti Sensory (Thumb) Forearm ? 1.3 2.1 <3.1 30.1 Forearm Thumb 1.3 10.0 77 Left Ulnar Anti Sensory (5th Digit) Wrist ? 2.6 3.6 <3.7 12.8 >15.0 Wrist 5th Digit 2.6 14.0 54 Right Ulnar Anti Sensory (5th Digit) Wrist ? 3.0 3.8 <3.7 8.6 >15.0 Wrist 5th Digit 3.0 14.0 47 Motor Summary Table ?Stim Site NR Onset (ms) Norm Onset (ms) O-P Amp (mV) Norm O-P Amp iAmp (mV) Amp (1st) (%) Site1 Site2 Delta-0 (ms) Dist (cm) Wang (m/s) Norm Wang (m/s) Left Median Motor (Abd Poll Brev) Wrist ? 5.2 <3.9 8.1 >4.5 9.5 100.0 Elbow Wrist 4.4 23.0 52 >45 Elbow ? 9.6 7.5 8.8 92.6 Right Median Motor (Abd Poll Brev) Wrist ? 5.0 <3.9 8.8 >4.5 10.8 100.0 Elbow Wrist 4.5 22.0 49 >45 Elbow ? 9.5 8.0 10.1 90.9 Right Ulnar Motor (Abd Dig Minimi) Wrist ? 3.6 <3.0 8.7 >5 10.2 100.0 B Elbow Wrist 4.1 21.0 51 >45 B Elbow ? 7.7 7.0 8.2 80.5 A Elbow B Elbow 1.4 10.0 71 >45 A Elbow ? 9.1 7.2 8.6 82.8 Left Ulnar (FDI) Motor (FDI) Wrist ? 4.3 <3.0 5.5 >5 6.3 100.0 B Elbow Wrist 3.7 22.0 59 >45 B Elbow ? 8.0 3.9 4.9 70.9 A Elbow B Elbow 1.8 10.0 56 >45 A Elbow ? 9.8 4.6 5.6 83.6 Right Ulnar (FDI) Motor (FDI) Wrist ? 4.5 <3.0 11.7 >5 13.5 100.0 B Elbow Wrist 3.9 21.0 54 >45 B Elbow ? 8.4 9.9 11.5 84.6 A Elbow B Elbow 2.0 10.0 50 >45 A Elbow ? 10.4 9.1 10.7 77.8 EMG ?Side Muscle Nerve Root Ins Act Fibs Psw Amp Dur Poly Recrt Int Pat Comment Right 1stDorInt Ulnar C8-T1 Nml Nml Nml Nml Nml 0 Nml Complete Right FlexCarpiUln Ulnar C8,T1 Nml Nml Nml Nml Nml 0 Nml Complete Right Biceps Musculocut C5-6 Nml Nml Nml Nml Nml 0 Nml Complete Right Triceps Radial C6-7-8 Nml Nml Nml Nml Nml 0 Nml Complete Right Deltoid Axillary C5-6 Nml Nml Nml Nml Nml 0 Nml Complete Left 1stDorInt Ulnar C8-T1 Nml Nml Nml Nml Nml 0 Nml Complete Left FlexCarpiUln Ulnar C8,T1 Nml Nml Nml Nml Nml 0 Nml Complete Left Biceps Musculocut C5-6 Nml Nml Nml Nml Nml 0 Nml Complete Left Triceps Radial C6-7-8 Nml Nml Nml Nml Nml 0 Nml Complete Left Deltoid Axillary C5-6 Nml Nml Nml Nml Nml 0 Nml Complete FINDINGS: Bilateral median motor nerves showed prolonged distal latency, normal amplitude and normal conduction velocity. Bilateral ulnar sensory nerves, recording at FDI, showed prolonged distal latency, normal amplitude and slight slowing of conduction velocity across the elbow. Bilateral median sensory nerves showed prolonged peak latency. Right ulnar sensory nerve showed small amplitude and prolonged peak latency. Left ulnar sensory nerve showed mildly small amplitude. All other nerves tested were within normal. Concentric needle EMG was performed in selected muscles of the bilateral upper extremities. Study did not reveal signs of electric abnormalities as shown in the table above. IMPRESSION: 1. This is an abnormal study. 2. There is electrodiagnostic evidence for bilateral moderate-severe median neuropathy at the wrist, consistent with carpal tunnel syndrome. 3. There is electrodiagnostic evidence for bilateral ulnar neuropathy at the elbow, appears chronic. 4. There is no electrodiagnostic evidence for brachial plexopathy or cervical radiculopathy. Thank you for your kind referral. Sheron Pimentel MD, KITTY Board Certified, [place] [employer] and Rehabilitation (ABPMR) Board Certified, [place] Board of Electrodiagnostic Medicine (ABEM) CODIN [phone] MTDD
--- OUTSIDE RECORDS SUMMARY | 2025-01-15 16:50 | XMS_ITS | Patient Health Record ---
Author Organization [facility] Address [address] [place] [address] Care Team Providers Care Paleology Professor Name Role Phone Po Elmer PINK Primary Care Provider Bg Perdomo [phone] Allergies Allergen (clinical drug ingredient) Drug/Non Drug Allergy documented on EMR Reaction Allergy Type Onset Date Status simvastatin Simvastatin Unknown Drug Allergy Act lucy Reason For Referral No Information Medications Medication SIG (Take, Route, Fr equency, Duration) Notes Start Date End Date Status Fish Oil 500 MG 1 capsule Orally Twi ce a day; Duration: 30 day(s) Active Tylenol 1 tab Oral prn Activ e Lisinopril 5 MG TAKE 1 TABLET BY DAYSI TH EVERY DAY Oral; Duration: 90 Active Immunizations Vaccine Route Administration Date [...] Problem Status W/U Status Risk Notes Problem Screening for malignant neoplasm of colon (139946309) Encounter for screening for malignant neoplasm of colon (Z12.11) Active confirmed Problem Preprocedural examination (888039103833884) Preprocedural examination (Z01.818) Active confirmed Plan Of Treatment Future Test Test Name Order Date COLONOSCOPY 09/29/2019 Insurance Providers Payer Name Payer Address Payer Phone Subscriber Number Group Number Insured Name Patient Relationship to Insured Coverage Start Date Coverage End Date [facility] [address] [facility] [place] [phone] [id number] KRISTEN ELY Self - patient is the insured Medical (General) History Medical History History ICD Code Denies NE,DM,CVA,Lung disease,renal dise ase HTN Negative colonoscopy in 2002 except for hemorrhoids and hyperplastic polyps Surgical History Surgery Date(Month/Year)
== END 2025-01-15 14:19 | disposition home or self-care (01) ==
LOC: HO.NEURO 14:18
PROVIDERS: PCP Internal Medicine; Visit Provider Internal Medicine
DX: R20.0 Anesthesia of skin (principal)
CPT/HCPCS: 95886; 95911

== ENCOUNTER → 2025-01-15 14:21 | Outpatient (BNV) | payer BC, SELFPAY | PROVIDERS: PCP Internal Medicine; Visit Provider Physical Medicine & Rehabilitation | DX: G56.13 Other lesions of median nerve, bilateral upper limbs (principal) | CPT/HCPCS: 95886; 95911 ==

== ENCOUNTER 2025-01-18 14:19 | Outpatient (AMB) | payer BC, SELFPAY | END 2025-01-18 14:20 | disposition home or self-care (01) | LOC: HO.HMGAL 14:19 | PROVIDERS: PCP Internal Medicine; Visit Provider Registered Nurse Emergency | DX: J30.89 Other allergic rhinitis (principal) | CPT/HCPCS: 95117; 95165 ==

== ENCOUNTER 2025-02-15 15:45 | Outpatient (AMB) | payer BC, SELFPAY | END 2025-02-15 15:46 | disposition home or self-care (01) | LOC: HO.HMGAL 15:45 | PROVIDERS: PCP Internal Medicine; Visit Provider Registered Nurse Emergency | DX: J30.89 Other allergic rhinitis (principal) | CPT/HCPCS: 95117; 95165 ==

== ENCOUNTER 2025-03-02 15:06 | Outpatient (AMB) | payer BC, SELFPAY ==
[2025-03-02 15:14] VITALS: BP 146/68; PULSE 67; RESP 18; O2SAT 97; BMI 33.5
--- NOTE | 2025-03-02 15:14 | MHC.PC.OV ---
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: No Accompanied by: Self / Same As Patient Allergies simvastatin Allergy (Mild, Verified 03/02/25 15:15) Fatigued Medication List - Last Reconciled 03/02/25 by Elmer Chacko MD acetaminophen 500 mg PO Q6H PRN buprenorphine-naloxone 2-0.5 mg [place] cholecalciferol (vitamin D3) 25 mcg PO DAILY dextroamphetamine-amphetamine 25 mg ER (Adderall XR) 25 mg PO QAM fenofibrate 160 mg PO DAILY folic acid 1 mg PO DAILY 90 days lisinopril 10 mg PO DAILY Tobacco use date assessed: 03/02/25 Dental Screening Dental Screen Date: 03/02/25 Did you have a dental visit in the last 12 months?: Yes Did you have a dental problem in the last 6 months where you did not have access to dental care?: No Was dental information given to patient?: Patient has dentist [facility] Medical History Bilateral hand numbness Essential hypertension Generalized anxiety disorder Vitamin D deficiency Hypercholesterolemia Leukopenia Obesity (BMI 30-39.9) Insomnia Degenerative disc disease Surgical History No pertinent past surgical history Family History Father Skin cancer Mother No problems noted. Social History Housing: House Alcohol intake: current Comment: stopped 3 years ago- oncea month 5-6 drinks (10/2024) Patient Tobacco Use Status: Former Tobacco user Tobacco use type: Cigarette Years Smoked: smoked 28 years old had 10 year of smoking e-Cigarette/Vaping Use: Never Used Second Hand Smoke Exposure: Yes Advance Directives Date on File: 01/04/20 service: No Current occupational status: employed Cognitive needs: No Hearing needs: No Vision needs: No Questionnaire Thrive Questionnaire Date Thrive assessed: 03/02/25 I am a: Patient What is your living situation today?: I choose not to answer this question Within the past 12 months, did the food you bought not last and you didn't have the money to get more?: I choose not to answer this question Within the past 12 months, did you worry whether your food would run out before you got money to buy more?: I choose not to answer this question Do you have trouble paying for medicines?: I choose not to answer this question Do you have trouble getting transportation to medical appointments?: I choose not to answer this question Do you have trouble paying your heating and electricity bill?: I choose not to answer this question Do you have trouble taking care of your child, family member or friend?: I choose not to answer this question Do you have trouble with day-to-day activities such as bathing, preparing meals, shopping, managing finances, etc.?: I choose not to answer this question Are you currently unemployed and looking for a job?: I choose not to answer this question Are you interested in more education?: I choose not to answer this question Please select the resources that you would like help with: None Currently or been in a relationship where the following occur: I choose not to answer THRIVE Score: 0 KATHIA-7 AMB Questionnaire KATHIA-7 Date KATHIA - 7 assessed: 04/27/24 Source: Developed by Drs. Bg Cunha, Barb Guardado, Dante Larsen and colleagues, with an educational sabas from [employer]. Physical exam (Primary Care) Vital Signs: Last Vital Signs Pulse 67 03/02/25 15:14 Resp 18 03/02/25 15:14 BP 146/68 H 03/02/25 15:14 Pulse Ox 97 03/02/25 15:14 Oxygen Delivery Method Room Air 03/02/25 15:14 BMI result Body Mass Index 33.5 Tobacco/Smoking Status: Tobacco use Status Tobacco use date assessed 03/02/25 03/02/25 15:20 Patient Tobacco Use Status Former Tobacco user 03/02/25 15:20 Tobacco use type Cigarette 03/02/25 15:20 e-Cigarette/Vaping Use Never Used 03/02/25 15:20 Thrive Assessment: Date of Thrive Assessment Date Thrive assessed 03/02/25 03/02/25 15:20 Currently or been in a relationship where the following occur: I choose not to answer Const General: alert; No acute distress Eyes Conjunctivae: conjunctivae normal Resp Auscultation: clear to auscultation bilaterally Cardio Rate: regular rate Rhythm: regular rhythm GI Inspection: Yes normal to inspection Extrem General: Yes normal to inspection and No edema Office Procedures Flu Questionnaire Does the patient have a severe egg allergy?: No Does the patient have severe life threatening allergies?: No Does the patient have a fever or illness today?: No Has the patient ever had Guillain-Jenkinjones Syndrome?: No Has the patient ever had any past reaction to a flu shot?: No Immunizations Fluarix [id number] (PF) 45 mcg (15 mcg x 3)/0.5 mL IM syringe Performing Provider: Elmer Chacko MD [facility] Administered by: JOHNNY Alonso on 03/02/25 15:37 Dose Route Admin Location Dispensed Lot Number Expiration Date [facility] Transitional Care Liaison 0.5 mL IM Right Deltoid 0.5 mL [id number] 09/28/25 99908-711-61 [employer] VIS Given Date VIS Provided VIS Publication Date 03/02/25 Single Vaccine 24 Eligibility Eligibility Date Funding Source Not [facility] Eligible 03/02/25 Private Coding Level of Care Code Est Pt Level 4 (64448) Complex visit Add On G2211 Diagnoses Essential hypertension I10 Hypercholesterolemia E78.00 Impaired glucose tolerance R73.02 Obesity (BMI 30-39.9) E66.9 BPH (benign prostatic hyperplasia) N40.0 Bilateral carpal tunnel syndrome G56.03 ADHD (attention deficit hyperactivity disorder), combined type F90.2 Assessment & Plan Assessment & Plan (1) Essential hypertension: Code(s): I10 - Essential (primary) hypertension Category: Medical Plan: Continue with blood pressure medication. Decrease salt intake and exercise patient is on lisinopril 10 mg once a day (2) Hypercholesterolemia: Code(s): E78.00 - Pure hypercholesterolemia, unspecified Category: Medical Plan: Avoid fried foods, chicken skin, eggs, butter margarine, pastries and meat. Be it pork or beef they have a lot of cholesterol LDL goal of less than 130 and triglyceride of less than 150. On fenofibrate 160 mg once a day (3) Impaired glucose tolerance: Code(s): R73.02 - Impaired glucose tolerance (oral) Category: Medical Plan: Decrease the amount of carbohydrate intake, pasta, bread, rice and potatoes are all sugar and that is aside from all the sweet stuff, remember that fruits are good but they are Sweet also. (4) Obesity (BMI 30-39.9): Code(s): E66.9 - Obesity, unspecified Category: Medical Plan: Diet and exercise, noted 11 lb weightGain (5) BPH (benign prostatic hyperplasia): Comment: Herbert Aguilar Code(s): N40.0 - Benign prostatic hyperplasia without lower urinary tract symptoms Category: Medical Plan: Stable (6) Bilateral carpal tunnel syndrome: Comment: December 2024This is an abnormal study. 2. There is electrodiagnostic evidence for bilateral moderate-severe median neuropathy at the wrist, consistent with carpal tunnel syndrome. 3. There is electrodiagnostic evidence for bilateral ulnar neuropathy at the elbow, appears chronic. 4. There is no electrodiagnostic evidence for brachial plexopathy or cervical radiculopathy. Code(s): G56.03 - Carpal tunnel syndrome, bilateral upper limbs Category: Medical Plan: has been referred to ortho and discussed about the bilateral moderate to severe carpal tunnel syndrome. (7) ADHD (attention deficit hyperactivity disorder), combined type: Code(s): F90.2 - Attention-deficit hyperactivity disorder, combined type Category: Medical Plan: Continue with present medication blood pressure controlled Orders: Orders Influenza [id number] Immunization Today Z23 - Encounter for immunization
== END 2025-03-02 15:40 | disposition home or self-care (01) ==
LOC: HO.HMCH 15:07
PROVIDERS: PCP Internal Medicine; Visit Provider Internal Medicine
DX: I10 Essential (primary) hypertension (principal); E78.00 Pure hypercholesterolemia, unspecified; E66.9 Obesity, unspecified; Z68.33 Body mass index [BMI] 33.0-33.9, adult; R73.02 Impaired glucose tolerance (oral); N40.0 Benign prostatic hyperplasia without lower urinary tract symptoms; G56.03 Carpal tunnel syndrome, bilateral upper limbs; F90.2 Attention-deficit hyperactivity disorder, combined type; Z23 Encounter for immunization

== ENCOUNTER → 2025-03-02 15:06 | Outpatient (BNVA) | payer BC, SELFPAY | PROVIDERS: PCP Internal Medicine; Visit Provider Internal Medicine | DX: I10 Essential (primary) hypertension (principal); E78.00 Pure hypercholesterolemia, unspecified; F41.9 Anxiety disorder, unspecified; G56.03 Carpal tunnel syndrome, bilateral upper limbs; D64.9 Anemia, unspecified; M77.10 Lateral epicondylitis, unspecified elbow; R73.02 Impaired glucose tolerance (oral); E66.9 Obesity, unspecified; N40.0 Benign prostatic hyperplasia without lower urinary tract symptoms; F90.2 Attention-deficit hyperactivity disorder, combined type; Z23 Encounter for immunization; Z68.33 Body mass index [BMI] 33.0-33.9, adult | CPT/HCPCS: 90471; 90656 ==

== ENCOUNTER 2025-03-17 14:54 | Outpatient (AMB) | payer BC, SELFPAY ==
--- OUTSIDE RECORDS SUMMARY | 2025-03-17 19:51 | XMS_ITS | Patient Health Record ---
Author Organization [facility] Address [address] [place] [address] Care Team Providers Care Club Attendant Name Role Phone Po Elmer PINK Primary Care Provider Bg Perdomo [phone] Allergies Allergen (clinical drug ingredient) Drug/Non Drug Allergy documented on EMR Reaction Allergy Type Onset Date Status simvastatin Simvastatin Unknown Drug Allergy Act lucy Reason For Referral No Information Medications Medication SIG (Take, Route, Fr equency, Duration) Notes Start Date End Date Status Fish Oil 500 MG Capsule 1 capsule Orally Twice a day; Duration: 30 day(s) Active Tylenol 1 tab Oral prn Activ e Lisinopril 5 MG Tablet TAKE 1 TABLET BY MOUTH EVERY DAY Oral; Duration: 90 Active Immunizations Vaccine Route Administration Date Status Comme nts Influenza Unknown 09/29/2019 Refused Social History Tobacco Use: Social History Observation Description Date Details (start date - stop date) Former Smoker NA - NA Social History Drugs/Alcohol: Social Info Question Answer Notes Alcohol Screen Did you have a drink containing alcohol in the past year? Yes How often did you have a drink containing alcohol in the past year? Never (0 point) How many drinks did you have on a typical day when you were drinking in the past year? 1 or 2 drinks (0 point) How often did you have 6 or more drinks on one occasion in the past year? Never (0 point) Points 0 Interpretation Negative Tobacco Use: Social Info Question Answer Notes Tobacco Use/Smoking Patient is a former smoker When did you stop smoking? 20 years ago How long has it been since you last smoked? 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 Notes: Nonsmoker; no sig alcohol Problems Problem Type SNOMED Code ICD Code Onset Dates Problem Status W/U Status Risk Notes Problem Screening for malignant neoplasm of colon (425909922) Encounter for screening for malignant neoplasm of colon (Z12.11) Active confirmed Problem Preprocedural examination (197136132598474) Preprocedural examination (Z01.818) Active confirmed Plan Of Treatment Future Test Test Name Order Date COLONOSCOPY 09/29/2019 Insurance Providers Payer Name Payer Address Payer Phone Subscriber Number Group Number Insured Name Patient Relationship to Insured Coverage Start Date Coverage End Date [facility] [address] [facility] [place] [phone] [id number] KRISTEN ELY Self - patient is the insured Medical (General) History Medical History History ICD Code Denies [place],DM,CVA,Lung disease,renal dise ase HTN Negative colonoscopy in 2002 except for hemorrhoids and hyperplastic polyps Surgical History Surgery Date(Month/Year)
== END 2025-03-17 14:56 | disposition home or self-care (01) ==
LOC: HO.HMGAL 14:54
PROVIDERS: PCP Internal Medicine; Visit Provider Registered Nurse Emergency
DX: J30.89 Other allergic rhinitis (principal)
CPT/HCPCS: 95117; 95165